=== PATIENT | female | born 1960 | race African-American/Black ===

== ENCOUNTER 2017-08-17 05:41 | Inpatient (IN) | payer OTHER ==
[2017-08-17] MEDS ORDERED: Vecuronium 10 MG VIAL ONE ×3 (06:01→13:49)
[2017-08-17] MEDS ORDERED: Fentanyl 250 MCG/5 ML VIAL ONE (06:01)
[2017-08-17] MEDS ORDERED: Midazolam HCl 5 mg/5 ml Vial ONE (06:01)
[2017-08-17] MEDS ORDERED: Sodium Chloride 0.9% 10 ML ONE ×2 (06:17→14:56)
[2017-08-17] MEDS ORDERED: Lidocaine 0.5%/Epinephrine 1:200,000 50 ml Vial ONE ×2 (06:17→19:15)
[2017-08-17] MEDS ORDERED: Bacitracin Zinc Ointment 30 gm TUBE ONE (06:17)
[2017-08-17] MEDS ORDERED: Thrombin 5000 UNITS/5 ML VIAL ONE ×2 (06:17→19:13)
[2017-08-17 06:27] LABS: Hemoglobin 15.6 g/dL (12.0-16.0); Mean Corpuscular HGB CONC 32.3 g/dL (32.0-36.0); Mean Corpuscular Hemoglobin 28.2 pg (27.0-31.0); Mean Corpuscular Volume 87.4 fl (81.0-99.0); Platelet Count 136 thou/uL (130-400); RBC Distribution Width 14.2 % (11.5-14.5); Red Blood Cell (RBC) Count 5.52 mill/uL (4.20-5.40); White Blood Cell (WBC) Count 5.3 thou/uL (4.8-10.8)
[2017-08-17 06:35] LABS: INR-International Normal Ratio 1.1; PTT 31.9 SEC (22.9-36.1); Prothrombin Time 14.1 SEC (12.0-14.7)
--- NOTE | 2017-08-17 06:37 | HP ---
REASON FOR ADMISSION: Here for brain tumor surgery. HISTORY OF PRESENT ILLNESS: Sherice Browning is a 57-year-old woman in our neurosurgery clinic refe rred for evaluation of a sellar and suprasellar mass. She underwent transsphenoidal resection of the inferior portion of the mass and it was found to be meningioma. It was tough and unsafe to remove i nferiorly. She is now back for a craniotomy for removal of the superior portion via intracranial jose kam. She has peripheral vision and blurry vision trouble and headache, but no other symptoms or c ranial neuropathies. PAST MEDICAL HISTORY: Coronary artery disease, hypertension, thyroid disease, and chronic back pain. PAST SURGICAL HISTORY: Transsphenoidal resection of a sellar and suprasellar lesion. HOSPITALIZATION: Hospitalization is for transsphenoidal resection of the tumor and for one episode o f alcohol withdrawal. MEDICATIONS: Hydralazine, levothyroxine, occasional Tylenol 3 and occasional tramadol. ALLERGIES: She has an allergy to NEXIUM. FAMILY HISTORY: No family history of a pituitary lesion or brain tumor. SOCIAL HISTORY: The patient has been a smoker of about a half pack to a pack per day for 15 years. She is not currently drinking alcohol or using drugs. She is . REVIEW OF SYSTEMS: Otherwise negative. PHYSICAL EXAMINATION: Ms. Browning is wide awake. She is conversant. Her receptive and expressive language function is normal. Her cognitive function is normal. Her visual snyder are contracted in the periphery. Her face is sensate and symmetric. Her hearing is normal to finger rub bilaterally. Her tongue protrudes midline. Shoulder shrugs and head turn are strong. The palate elevates in th e midline. There is no lateralizing motor or sensory deficit in the extremities. Alternating rapid motions are performed rapidly and smoothly. IMAGING FINDINGS: I reviewed a recent MRA of the brain performed at the [facility] shows the suprasellar portion of the lesion and evidence of prior surgery. This extends in the suprasellar sp karo under the optic chiasm between the carotid arteries and out of bed onto the plane and sphenoidale . ASSESSMENT: Sellar and suprasellar meningioma. PLAN: We will take Ms. Browning to the operating room for craniotomy and resection of her tumor thr ough an intracranial approach. Anticipate an ICU stay at least a day or two. I am optimistic for st jaqu[facility] recovery thereafter.
[2017-08-17] MEDS ORDERED: CEFAZOLIN/Water 2 GM/20 ML SYRINGE ONE (06:44)
[2017-08-17] MEDS ORDERED: Pantoprazole 40 MG VIAL ONE (07:56)
[2017-08-17] MEDS ORDERED: Dexamethasone 20 MG/5 ML VIAL ONE ×2 (07:56→13:46)
[2017-08-17] MEDS ORDERED: levETIRAcetam 1000 MG/100 ML PREMIX BAG ONE (07:56)
[2017-08-17] MEDS ORDERED: Fentanyl 100 MCG/2 ML VIAL ONE ×3 (08:36→16:44)
[2017-08-17] MEDS ORDERED: Metoprolol Tartrate 5 MG/5 ML VIAL ONE ×2 (08:37→13:46)
[2017-08-17] MEDS ORDERED: Papaverine 60 MG/2 ML VIAL ONE (12:50)
[2017-08-17] MEDS ORDERED: Mannitol 12.5 GM/50 ML ONE (13:46)
[2017-08-17] MEDS ORDERED: Sterile Water 10 ML VIAL ONE (13:46)
[2017-08-17] MEDS ORDERED: Lidocaine 2% PF 100 mg/5 ml Syringe ONE (13:46)
[2017-08-17] MEDS ORDERED: Lidocaine 1% PF 5 ML VIAL ONE (13:46)
[2017-08-17] MEDS ORDERED: Ondansetron HCl/PF 4 MG/2 ML Vial ONE (13:46)
[2017-08-17] MEDS ORDERED: CEFAZOLIN 1 GM VIAL ONE ×2 (13:46→15:49)
[2017-08-17] MEDS ORDERED: PROPOFOL 200 MG/20 ML VIAL ONE (13:49)
[2017-08-17] MEDS ORDERED: HYDROmorphone 0.5 MG/0.5 ML SYRINGE ONE ×5 (14:53→21:22)
[2017-08-17] MEDS ORDERED: Promethazine HCl 25 MG/ML VIAL SLOW IVP PRN (15:33)
[2017-08-17] MEDS ORDERED: Ondansetron HCl/PF 4 MG/2 ML Vial IVP PRN ×2 (15:33→16:13)
[2017-08-17] MEDS ORDERED: Promethazine HCl 25 MG/ML VIAL IM PRN ×2 (15:33→16:13)
[2017-08-17] MEDS ORDERED: Meperidine HCl/PF 25 MG/ML VIAL SLOW IVP PRN (15:33)
[2017-08-17] MEDS ORDERED: Labetalol HCl 100 MG/20 ML VIAL SLOW IVP PRN (16:13)
[2017-08-17] MEDS ORDERED: diphenhydrAMINE 50 MG CAP PO PRN (16:13)
[2017-08-17] MEDS ORDERED: Promethazine 25 MG TAB PO PRN (16:13)
[2017-08-17] MEDS ORDERED: Promethazine HCl 12.5 MG SUPP PR PRN (16:13)
[2017-08-17] MEDS ORDERED: Mag-Al 1200 mg/1200 mg/30 ML UDCUP PO PRN (16:13)
[2017-08-17] MEDS ORDERED: diphenhydrAMINE 50 MG/ML VIAL IVP PRN (16:13)
[2017-08-17] MEDS ORDERED: Morphine 4 MG/ML VIAL SLOW IVP PRN (16:30)
[2017-08-17] MEDS ORDERED: hydrALAZINE 20 MG/ML VIAL ONE (16:37)
[2017-08-17] MEDS ORDERED: niCARdipine HCl 25 MG in Sodium Chloride 0.9% 250 ML 240 ML IVPB SCH (16:45)
[2017-08-17 18:50] LABS: Actual Bicarbonate (HCO3a) 23.3 mEq/L (22-26); Base Excess (BEa) -2.3 mEq/L (0 (+/-) 2.5); CO2 Tension 42.9 mmHg (35.0-45.0); O2 Tension (PaO2) 119.1 mmHg (80.0-100.0); pH, Arterial 7.35 (7.35-7.45)
[2017-08-17 18:51] LABS: Calcium, Ionized 1.2 mmol/L (1.12-1.30); Hematocrit-ABG 44.3 % (36.0-47.0); Hemoglobin (Hb) 13.6 g/dL (12.0-16.0)
[2017-08-17 18:52] LABS: ALV-art Gradient 255.075 (0-20); Puncture Site ALINE
--- NOTE | 2017-08-17 19:14 | OP ---
DATE OF PROCEDURE: 08/17/2017 SURGEON: Dr. Jurado and Dr. Sevilla. ETL PROGRAMMER: Dr. Byrnes. PREOPERATIVE DIAGNOSES: Planum sphenoidale and suprasellar meningioma. POSTOPERATIVE DIAGNOSES: Planum sphenoidale and suprasellar meningioma. PREOPERATIVE MEDICATIONS: Ancef 2 grams IV, Keppra 1000 mg IV, Decadron 10 mg IV, Protonix 40 mg IV. DRAIN NUMBER: 0. DRAIN TYPE: None. OPERATIVE PROCEDURE: Left frontotemporal craniotomy for resection of planum sphenoidale and sellar a nd suprasellar meningioma. OPERATIVE PROCEDURE IN DETAIL: The patient was brought to the operating room. General endotracheal anesthesia was induced. The patient was positioned supine with the left shoulder bumped. The head w as immobilized in Sayre sherron headholder and turned slightly to the right and hair was removed fr om the left side of the scalp with electric clippers. We planned a curvilinear incision from the ashley t of zygoma curving posteriorly over the pinna and then anteriorly toward the midline. Under a plann ed incision, we infused local anesthetic. The scalp was sterilely prepped and draped. We opened wit h a 10-blade knife and controlled bleeding with bipolar and monopolar cautery. We dissected down to the periosteal layer and folded the scalp flap forward in 2 parts, first the scalp and then the tempo ralis muscle. We placed maya holes at the frontal keyhole the root of the zygoma, the posterior aspe ct of the superior temporal line and one in the frontal bone. We stripped the dura from the undersur face of the bone with a Dodge 3 dissector. We created a craniotomy flap with a side cutting bit a nd a foot plate. This frontotemporal flap was folded out of the field after we thinned the zygoma. With a high-speed drill and deena maya, we drilled the pterion flat. We then opened the dura in a curvilinear fashion centered at the pterion. The operating microscope was brought in the field. The Breather brain retractor system was attached to the Sayre sherron headholder. We carefully diss ected under the frontal lobe until we encountered tumor. Because the retractor necessary to visualiz e the tumor, we distressed the sylvian vessels. We opened the proximal portion of the sylvian fissur e widely. This relaxed the brain significantly, especially when we entered the sylvian cistern of hi s CSF contents and opened the arachnoid over the carotid and the optical carotid triangle. Tumor was visualized on the left side between the carotid and the optic nerve and above the optic nerve. We c arefully and meticulously dissected the anterior portion of the tumor off the planum sphenoidale. We arrived at the optic nerve on the contralateral side and carefully dissected off the optic nerve the re. Inferior to it, we found the carotid on the contralateral side and dissected tumor away from the carotid as well. The proximal dissection between carotid and optic nerve progressed very carefully and eventually we were deep to the tumor and could mobilize it medially under the optic nerve. In th is position, we coagulated the tumor capsule and fold the tumor in between the optic nerves on either side. We removed a large portion of tumor with this maneuver. We dissected carefully under the opt ic chiasm and removed tumor, we could visualize the pituitary stalk which was left intact. We could visualize the third nerve on the right (contralateral) side. In the inferior portion of the frontal lobes, tumor was removed in a piecemeal fashion as well. There was a small piece of tumor above the anterior cerebral that was intermittently associated with the anterior communicating complex and smal l perforators. We elected to leave some tumor on the ACOM complex rather than risk losing any small maintenance helper. Some tumor was left at the optic and carotid canals on the right side and the left side and a small shell of tumor left on the diaphragm sellae. We irrigated copiously with bacitracin irri gation. At the completion of our decompression, we could easily visualize the entire optic apparatus including both optic nerves and the chiasm. There is no longer compression there. The bulk of the tumor mass had been removed subfrontally as well with only a few tiny remnants left at the corners th at were too dangerous to remove. We irrigated copiously with bacitracin irrigation. We harvested a periosteal flap and used that to close the dura in a watertight fashion. We reapproximated the crani al flap with plates and screws. We closed the scalp in anatomic layers after reattaching the tempora lis muscle. A sterile dressing was applied. The patient was taken back out of [facility] cold header. Dr. Jurado and Dr. Sevilla performed equal portions of the procedure. The two surgeons were awa mayo given the length of the operation.
[2017-08-17] MEDS ORDERED: Sodium Chloride 0.9% 20 ML ONE ×3 (19:15→20:48)
--- NOTE | 2017-08-17 19:28 | PRG ---
DATE OF SERVICE: 08/17/2017 NEUROSURGERY PROGRESS NOTE SUBJECTIVE: I saw Ms. Browning in the recovery room over the past hour to hour and a half. Althoug h she made neurological improvement over that time and became more responsive to stimulus, moving the left side with purpose. The right side remained weak. There is almost no motion seen on the right and she is not responsive to voice. CT scan of the brain was performed and there is an extra-axial f luid collection most likely epidural hematoma over the dura that accumulated in the interim from surg [facility] until the scan. Reviewing records, the blood pressure was elevated at the end of the case and from the operating room to the recovery room including the first 30-45 minutes of recovery, this may be responsible. However, CT also demonstrates some areas of hypodensity that are concerning. I spoke with Ms. Browning's and reported the findings of the CT scan and they recommended op erative evacuation of the extra-axial hemorrhage to alleviate midline shift and remove that as a poss ibility for the neurological deficit. We will take her back to the operating room. INFORMED CONSENT: I discussed indications, risks, benefits, and alternatives to returning to the ope rating room. The risks discussed included, but were not limited to bleeding, infection, CSF leak, br ain damage, stroke, paralysis, dependence for care, cardiopulmonary complications of anesthesia and d eath. He understands the risks. All of this together, I think are less than the risk of not operati ng. Following surgery, we will likely leave the patient intubated overnight. We will get a CAT scan imme diately following surgery and a repeat in the morning.
--- NOTE | 2017-08-17 19:38 | CT ---
CT OF THE BRAIN WITHOUT CONTRAST 08/17/17 COMPARISON: None. HISTORY: Postoperative findings from craniotomy. TECHNIQUE: Multiple contiguous axial images were obtained in a CT of the brain without contrast. FINDINGS: The patient is status post left frontal craniotomy. There is a small amount of pneumocephalus. There is a subdural hematoma measuring 1.3 cm in width. There is also blood seen in the region of the pitui tary and hypothalamus. There is shift of the midline to the right of approximately 9 mm. No intervert ebral hemorrhage or hydrocephalus are seen. A small amount of blood is seen in the left frontal regio n which may not be extra-axial and could represent a small contusion in the frontal lobe. The paranasal sinuses are well aerated. Fluid is seen in the sphenoid sinuses. The mastoid air cells are well aerated. IMPRESSION: Postsurgical changes as above from recent craniotomy. There is a moderate amount of subdural hemorrha ge and blood in the region of the hypothalamus and pituitary. Midline shift without dominant herniati on is seen. POS: [facility]
--- NOTE | 2017-08-17 20:35 | CON ---
DATE OF CONSULTATION: 08/17/2017 REASON FOR CONSULTATION: Postop critical care management. HISTORY OF PRESENT ILLNESS: A 57-year-old female who underwent craniotomy with resection of sellar a nd suprasellar mass which is a meningioma. She was extubated in the recovery room. I was asked to s ee her because she has remained grossly hypertensive since surgery with systolic pressure about 200. PAST MEDICAL HISTORY: 1. Coronary artery disease. 2. Hypertension. 3. Hypothyroidism. 4. Chronic back pain. PAST SURGICAL HISTORY: She had a transsphenoidal resection of sellar and suprasellar lesion. She march s a scar in the left neck area - I am not sure if this is from carotid endarterectomy from previous t hyroid surgery. MEDICATIONS PRIOR TO ADMISSION: Hydralazine, levothyroxine, Tylenol #3, tramadol. ALLERGIES: NEXIUM. FAMILY MEDICAL HISTORY: Unremarkable. SOCIAL HISTORY: The patient has been half-pack per day smoker for 15 years, previously abused alcoho l, does not anymore. Does not consume illicit drugs. REVIEW OF SYSTEMS: Cannot be obtained as she is currently drowsy from anesthesia. PHYSICAL EXAMINATION: VITAL SIGNS: Heart rate 81, blood pressure 191/91, O2 sat in the upper 80s on nasal cannula. HEENT: She has a bandage around her head. Oropharynx has a bite block in place. NECK: She has a full thyroid extending up the right cervical area. She has a scar over the left mik e of her neck. LUNGS: Clear without wheezing or rhonchi. CARDIAC: S1, S2 regular, without murmur. ABDOMEN: Soft, nontender, nondistended. EXTREMITIES: No clubbing, cyanosis, or edema. LABORATORY DATA: White blood cell count 5.3, hematocrit 48.2, platelet count 136. INR 1.1, PTT 31.9 . ASSESSMENT: 1. Hypertension with elevated postop blood pressure. 2. Status post resection of sellar and suprasellar mass. RECOMMENDATIONS: 1. Cardene drip for blood pressure control. 2. Monitor electrolytes closely. 3. Monitor urine output closely as she is at risk for development of diabetes insipidus. 4. She is on empiric steroids, Dr. Jurado. 5. Need to restart her levothyroxine.
[2017-08-17] MEDS ORDERED: Propofol 500 MG/50 ML VIAL ONE (21:46)
--- NOTE | 2017-08-17 22:29 | CT ---
CT OF THE BRAIN WITHOUT CONTRAST 08/17/17 COMPARISON: 08/17/17 at 6:53 p.m. HISTORY: Evacuation of extra-axial hematoma in a postoperative patient. TECHNIQUE: Multiple contiguous axial images were obtained in a CT of the brain without contrast. FINDINGS: Postsurgical changes are again seen in the left frontal calvarium. The previously seen extra-axial fl uid collection has been predominantly evacuated. This is decreased in size and now measures approxima tely 6 mm in thickness. There is a stable amount of pneumocephalus. There is high density in the supr asellar region which likely is the operative bed. A small amount of high density is again seen in the frontal lobe measuring 9 mm in size which could represent a small contusion in the frontal lobe. Lef t midline shift is seen with approximately 7 mm of shift to the right. No downward herniation is seen . No hydrocephalus is seen. There is a trace of intraventricular hemorrhage on the posterior horn of the right lateral ventricle. IMPRESSION: 1. Evacuation of a large amount of the extra-axial hematoma along the left frontotemporal convex ity. 2. There are areas of hyperdensity in the brain which likely represents the patient's operative bed. 3. Small amount of intraventricular hemorrhage. POS: [facility]
[2017-08-17 23:13] LABS: Actual Bicarbonate (HCO3a) 20.8 mEq/L (22-26); CO2 Tension 35.2 mmHg (35.0-45.0); pH, Arterial 7.39 (7.35-7.45)
[2017-08-17 23:14] LABS: Base Excess (BEa) -3.5 mEq/L (0 (+/-) 2.5); Calcium, Ionized 1.2 mmol/L (1.12-1.30); Hematocrit-ABG 38.4 % (36.0-47.0); Puncture Site LINE
[2017-08-18 00:29] LABS: Troponin I Less than 0.010 ng/mL (< 0.028)
[2017-08-18 00:35] LABS: CKMB 17.4 ng/mL (0-6.6)
[2017-08-18] MEDS: Dexamethasone 4 mg/ml Vial SLOW IVP SCH ×6 (01:10→23:53)
[2017-08-18] MEDS: CEFAZOLIN/Water 2 GM/20 ML SYRINGE SLOW IVP SCH ×3 (01:10→16:20)
[2017-08-18] MEDS: Sodium Chloride 0.9% 1,000 ML IV SCH ×3 (01:11→20:17)
[2017-08-18] MEDS ORDERED: Propofol 1,000 MG/100 ML VIAL IV ONE (02:16)
[2017-08-18] MEDS ORDERED: Morphine 4 MG/ML VIAL SLOW IVP PRN (02:20)
[2017-08-18] MEDS ORDERED: Propofol BOLUS 1,000 MG/100 ML VIAL IV PRN (02:20)
[2017-08-18] MEDS ORDERED: Lorazepam 2 MG/ML VIAL SLOW IVP PRN (02:20)
[2017-08-18] MEDS ORDERED: fentaNYL Citrate/PF 2,000 MCG in Sodium Chloride 0.9% 60 ML IV SCH (02:20)
[2017-08-18] MEDS ORDERED: Fentanyl BOLUS 250 ML IVPB PRN (02:20)
[2017-08-18] MEDS ORDERED: DISCONTINUE PREVIOUS NARCOTIC PAIN MEDICATIONS AND BENZODIAZEPINES FS SCH (02:20)
--- NOTE | 2017-08-18 04:14 | OP ---
DATE OF PROCEDURE: 08/17/2017 SURGEON: Aisha Jurado MD RIGGING MAN: None. PREOPERATIVE INDICATION: Prevent neurological deterioration. PREOPERATIVE DIAGNOSES: Postoperative extraaxial hemorrhage with midline shift and mass effect. POSTOPERATIVE DIAGNOSIS: Postoperative extraaxial hemorrhage with midline shift and mass effect. OPERATIVE PROCEDURE: Re-opening of left frontotemporal craniotomy, evacuation of epidural and subdur al hematoma, repeat closure of frontotemporal craniotomy. PREOPERATIVE MEDICATION: Ancef 2 grams IV. DRAIN NUMBER: Zero. DRAIN TYPE: None. DESCRIPTION OF PROCEDURE: The patient was brought to the operating room. The patient was re-intubat ed and general anesthesia was induced. The head was attached to [place] sherron well head pumper. The le ft shoulder was bumped. The head was turned to the right and the head immobilized with [place] chad chment for the operating table. The scalp was sterilely prepped. We removed karel from the previo us craniotomy. We infused local anesthetic down each side of the incision and the scalp was prepped again. We draped in usual fashion. With scissors, we cut our previous sutures and opened our cranio soo flap. We lifted the temporalis muscle as a separate flap and we removed the screws holding the titanium plates in place. There was a large epidural hematoma with significant mass effect onto the dura and this was evacuated. There were small bleeders from the superficial surface of the dura, but no large significant bleeders. These were easily coagulated and there was no further bleeding. We gently opened a few of our dural sutures and found a small subdural clot, but enough that required ev acuation. We opened the dura further and evacuated all of her subdural hematoma. We irrigated it co piously with bacitracin irrigation. All the irrigant ran clear after evacuation of her hematoma. Th e brain floated up nicely and we re-closed the dura in an interrupted fashion with our pericranium an d dura connected. We filled the dura with irrigant before the last sutures were thrown. We reapprox imated the skull flap at this time with 4 sleeper stitches instead of 1 and tightened down our screws into the previous holes that we had made. We irrigated once again with bacitracin irrigation. We t urned the entire table until top of the incision was the highest point and through the maya holes we filled the craniotomy defect with irrigant until all bubbles were finished. We then reapproximated t he temporalis muscle. We filled the incision once again with irrigation and we closed the craniotomy incision from both sides towards the middle filling with irrigant as we went and then we finally jurgen sed the skin with karel. We applied a sterile dressing. We removed the Brito sherron head holde r and we transferred the patient to the transport cart and took her to the CT scan. This was a clean case and no contamination.
[2017-08-18 04:23] LABS: #Lymphocytes 1.1 thou/uL (1.20-3.40); #Monocytes 0.6 thou/uL (0.11-0.59); #Neutrophils 8.9 thou/uL (1.40-6.50); %Basophils 0.2 % (0.0-1.0); %Eosinophils 0.1 % (0.0-10.0); %Lymphocytes 9.9 % (21.0-51.0); %Monocytes 5.6 % (0.0-10.0); %Neutrophils 84.2 % (42.0-75.0); Hemoglobin 12.4 g/dL (12.0-16.0); Mean Corpuscular HGB CONC 32.6 g/dL (32.0-36.0); Mean Corpuscular Hemoglobin 28.6 pg (27.0-31.0); Mean Corpuscular Volume 87.7 fl (81.0-99.0); Mean Platelet Volume 9.3 fL (7.4-10.4); Platelet Count 124 thou/uL (130-400); Red Blood Cell (RBC) Count 4.32 mill/uL (4.20-5.40); White Blood Cell (WBC) Count 10.5 thou/uL (4.8-10.8)
[2017-08-18 04:30] LABS: Anion Gap 10 mmol/L (10-20); BUN (Urea Nitrogen) 7 mg/dL (9.8-20.1); Calc. Creatinine Clearance 93 mL/min (70-130); Calcium 8.5 mg/dL (7.8-10.44); Carbon Dioxide 22 mmol/L (22-29); Chloride 116 mmol/L (98-107); Estimated GFR-MDRD Greater than 90; Glucose 205 mg/dL (70-105); Potassium 3.3 mmol/L (3.5-5.1); Sodium 145 mmol/L (136-145)
[2017-08-18 04:38] LABS: Troponin I Less than 0.010 ng/mL (< 0.028)
[2017-08-18 04:42] LABS: CKMB 15.8 ng/mL (0-6.6); Critical Call CKMBM RESULT DECREASING
[2017-08-18] MEDS: Levothyroxine 100 MCG SDV IVP SCH (06:51)
--- NOTE | 2017-08-18 07:16 | PRG ---
DATE OF SERVICE: 08/18/2017 Ms. Browning is postop day #1 from microsurgical resection of a skull base meningioma in the suprase llar space. She was slow to wake from that first surgery and had a combination of epidural subdural hematoma at the operative site which needed a repeat evacuation. Overnight, she has been in ICU on p ropofol drip. When the propofol is turned off, she is purposeful. She is moving her left side faste r than the right, but both sides are moving this morning, which is an improvement. Her vitals have b een stable, but she is on a Cardene drip to control her blood pressure. I am examining her after the propofol has just been stopped. There is some disconjugate gaze and sluggish pupils and sluggish to nonreactive pupils. The pupils are small, however. I do see very brisk motion on the left side of the body. She uses her right elbow to try to push her self to sit up, she moves the right leg, and moves a bit slower than the left, but they are moving. CT imaging of the brain shows evacuation of the subdural hematoma. There is some anterior pneumoceph alus, there is a small clot in the area of the tumor resection, not causing much in the way of mass e ffect. There is hypodensity in the left thalamus and near the chin near the internal capsule. There is hypodensity in the left anterior thalamus. There are some hypodensities in MCA distributions isael aterally, but it is hard to know what to make of these. Sodium was 145 this morning. CK-MB was elevated, but troponins were negative. My plan today is to h ave Ms. Browning have an MRI scan. This will better delineate hypodensities within the brain. I do not plan on using contrast for this scan. The follow up imaging directed toward the tumor itself i n 3 months will be done with contrast. As she wakes will better us to be able to assess her second a nd third cranial nerves bilaterally. If after the MRI scan she is awake enough, she could possibly b e extubated. We have kept the family informed both overnight and this morning as to her progress and her imaging f mary jane.
[2017-08-18] MEDS ORDERED: Dextrose 50% Abboject 50 ML SYRINGE SLOW IVP PRN (07:39)
[2017-08-18] MEDS ORDERED: CCU Electrolyte Replacement 1 EACH FS ONE (07:39)
[2017-08-18] MEDS ORDERED: Dextrose 5% in Water 1,000 ML IV PRN (07:39)
--- NOTE | 2017-08-18 07:59 | PRG ---
DATE OF SERVICE: 08/18/2017 Thirty-five minutes critical care time. SUBJECTIVE: The patient had to be taken back to surgery last night. She was left intubated afterwar d. She had developed some type of a hematoma, which was causing a midline shift. Neurologically, kellen adams is experiencing right-sided weakness compared to the left. She is scheduled for an MRI later this morning. PHYSICAL EXAMINATION: VITAL SIGNS: Right now, her blood pressure is 130/60, pulse 65, O2 sat 100%, respiratory rate 18, te mperature 98.4. HEENT: Her left pupil is 3 mm, right pupil is 1 mm. Sclerae anicteric. Oropharynx clear. NECK: No JVD. LUNGS: Coarse breath sounds. CARDIAC: S1 and S2 regular. ABDOMEN: Soft. EXTREMITIES: No edema. LABORATORY DATA: Sodium 145, potassium 3.3, chloride 116, CO2 22, BUN 7, creatinine 0.6, glucose 205 . ABG from last night, pH 7.39, pCO2 35, pO2 118 on SIMV rate 14, tidal volume 400, PEEP 5, pressure support 10, FiO2 50%. White blood cell count 10.5, hematocrit 37.9, platelet count 124. ASSESSMENT: 1. Status post suprasellar mass removal subsequent postop fluid collection, midline shift. 2. Right-sided hemiparesis. 3. Acute respiratory failure requiring mechanical ventilation. 4. Hyperglycemia secondary to exogenous Decadron. 5. Expected postop respiratory failure, not related to surgery. PLAN: 1. Leave the patient intubated until neurologic status is improved. 2. Replace potassium. 3. Continue IV Synthroid. 4. Add sliding scale insulin. 5. Continue IV steroids. We will follow.
--- NOTE | 2017-08-18 08:25 | CT ---
PRELIMINARY REPORT/[facility]/EMERGENCY AFTER HOURS PROCEDURE: EXAM: CT Head Without Intravenous Contrast CLINICAL HISTORY: 57 years old, female; cerebral aneurysm: F/u S/P craniotomy TECHNIQUE: Axial computed tomography images of the head/brain without intravenous contrast. COMPARISON: CT Brain WO Con 2017-08-17 22:16 FINDINGS: Brain: No change in focal area of low density / ischemia within the anterior left thalamus and inferi or left frontal lobe. Periventricular white matter areas of decreased density which are likely second steve to chronic ischemia from microvascular change. No hemorrhage. Midline shift: No interval change in approximate 5-6 mm mxir-rj-zcuyt midline shift. Ventricles: Unremarkable. No ventriculomegaly. Bones/joints: Prior left mosprld-ljpvjznd-bdbpkwdt craniotomy with persistent acute-on chronic left f vyhdjv-pasuwpwk-chryxldh subdural collection and collections of postsurgical air within the right fro ntal and left vlrcwjb-rapsceox-xhtxbnxm extra-axial space. Soft tissues: Unremarkable. Sinuses: Opacified sphenoid sinus. Mastoid air cells: Unremarkable as visualized. No mastoid effusion. Sella: No interval change in lobulated focal area of hemorrhage within the suprasellar region, small focal area of hemorrhage within the inferior left frontal lobe, or area of hemorrhage high within the anterior left cerebral hemisphere. Other findings: Persistent trace amount of acute hemorrhage in the right occipital horn. IMPRESSION: 1. No acute intracranial findings compared to 08/17/2017. 2. Prior left opothcg-tjdxnvtu-ldvtpuhb craniotomy with persistent acute-on chronic left frontal-britni etaltemporal subdural collection and collections of postsurgical air within the right frontal and lef t frontalparietal- temporal extra-axial space. 3. No interval change in lobulated focal area of hemorrhage within the suprasellar region, small foca l area of hemorrhage within the inferior left frontal lobe, or area of hemorrhage high within the ant erior left cerebral hemisphere. 4. No interval change in approximate 5-6 mm [id number]-px-[id number] midline shift. 5. Persistent trace amount of acute hemorrhage in the right occipital horn. 6. No change in focal area of low density / ischemia within the anterior left thalamus and inferior l eft frontal lobe. Thank you for allowing us to participate in the care of your patient. Dictated and Authenticated by: Urban Valles MD 08/18/2017 5:22 AM Central Time ([place] & [place]) FINAL REPORT CT HEAD: Date: 08/18/17 Time: 0416 hours FINDINGS/IMPRESSION: No acute interval change from exam of 08/17/17 at 2217 hours. Multiple intracranial findings, includi ng left subdural hematoma, are described on the preliminary report by [facility]. I am in agreement with farrukh adams preliminary report. POS: [facility]
[2017-08-18] MEDS ORDERED: Potassium Chloride 40 MEQ in Premix Bag 1 BAG IVPB PRN (08:32)
[2017-08-18] MEDS ORDERED: Potassium Phosphate 12 MMOL in Sodium Chloride 0.9% 250 ML 250 ML IV PRN (08:32)
[2017-08-18] MEDS ORDERED: Magnesium Oxide 400 MG TAB PO PRN ×2 (08:32)
[2017-08-18] MEDS ORDERED: Potassium Phosphate 9 MMOL in Sodium Chloride 0.9% 100 ML IVPB PRN (08:32)
[2017-08-18] MEDS ORDERED: Magnesium 2 GM/NS 0.9% 100 ML 2 GM in Premix Bag 1 BAG IVPB PRN (08:32)
[2017-08-18] MEDS ORDERED: CCU ELECTROLYTE REPLACEMENT PROTOCOL FS PRN (08:32)
[2017-08-18] MEDS ORDERED: Potassium Phosphate 15 MMOL in Sodium Chloride 0.9% 250 ML 250 ML IV PRN (08:32)
[2017-08-18] MEDS ORDERED: Potassium Chloride 20 MEQ TAB PO PRN (08:32)
[2017-08-18] MEDS: Insulin Regular 300 UNITS/3 ML VIAL SC PRN ×2 (08:58→23:46)
[2017-08-18] MEDS: Potassium Chloride 40 MEQ in Sodium Chloride 0.9% 250 ML 250 ML IVPB PRN (09:31)
[2017-08-18] MEDS: niCARdipine HCl 50 MG in Sodium Chloride 0.9% 250 ML 230 ML IVPB SCH ×4 (11:59→23:53)
[2017-08-18] MEDS ORDERED: Vecuronium 10 MG VIAL IVP PRN (12:04)
[2017-08-18] MEDS ORDERED: Vecuronium 10 MG VIAL IV PRN (12:21)
--- NOTE | 2017-08-18 15:47 | MRI ---
BRAIN MRI WITHOUT CONTRAST: DATE: 08/18/17. COMPARISON: None. HISTORY: Postoperative patient status post craniotomy. TECHNIQUE: Multiplanar, multisequence MR imaging of the brain is obtained without contrast. FINDINGS: There is evidence of left frontal craniotomy with overlying cutaneous karel present. Bilateral anterior subdural pneumocephalus noted. Bilateral hemispheric subdural hematomas are prese nt, left greater than right, measuring up to 4 mm in transverse dimension in left temporal region, 3 mm in transverse dimension right temporal region, 1 cm transverse dimension in left frontal region, a nd 6 mm transverse dimension right frontal region. Small volume intraventricular hemorrhage is noted in the region of the bilateral lateral ventricles within the posterior horns. There is midline shif t from left to right measuring approximately 7-8 mm, as seen on the CT examination performed earlier on 08/18/17. Regional bone marrow signal intensity appears grossly unremarkable. There is fluid layering posterio rly within the nasopharynx. There is polypoid mucosal thickening within the sphenoid sinus on the le ft. Arterial flow voids at axial level of the skull base appear grossly unremarkable on the T2 weighted i maging. There is a focal area of signal abnormality just inferior to the expected location of the anterior co mmunicating artery which measures 8-9 mm in AP dimension. There is blooming artifact in this region as well as decreased T2 and FLAIR signal intensity. This could be related to a focus of intracranial hemorrhage and/or aneurysm. There are areas of increased T2 and FLAIR signal within the cortex and subcortical white matter along the inferior margin of the anterior cranial fossa on the left involvin g the left frontal lobe, evidence of left frontal lobe edema. There is a round area of restricted di ffusion within the anteromedial aspect of the left thalamus measuring 1.5 cm, evidence of an acute le ft thalamic infarction. There is also restricted diffusion along the inferior margin of the left fro ntal lobe measuring up to 1.6 cm, suggesting an additional area of acute infarction. A focus of prob able intraaxial hemorrhage is noted in the superior anterior left frontal lobe near the vertex, best seen on axial T2 image 20 measuring 1.6 cm AP dimension. The brainstem and posterior fossa demonstrate no evidence for acute infarction. No acute infarction is seen involving the right cerebrum. IMPRESSION: Bilateral subdural hematomas, left greater than right, most prominent in the left frontal region, wit h [id number] midline shift, as seen on recent CT. There are foci of acute infarction along the in ferior aspect of the left frontal lobe as well as within the left thalamus. Intraventricular hemorrh age noted within bilateral lateral ventricles, stable. Continued followup advised. A focus of signa l alteration in the expected region of the anterior communicating artery which could reflect aneurysm or hemorrhage in this region. This could be better assessed via a followup CT angiogram. POS: [facility]
[2017-08-18] MEDS: Propofol 1,000 MG/100 ML VIAL IV PRN ×2 (16:21→23:53)
[2017-08-18 17:24] LABS: Sodium 154 mmol/L (136-145)
[2017-08-18] MEDS: Pantoprazole 40 MG VIAL IVP SCH ×2 (21:17)
[2017-08-18] MEDS: hydrALAZINE 20 MG/ML VIAL SLOW IVP PRN (21:18)
[2017-08-19 00:08] LABS: Sodium 156 mmol/L (136-145)
[2017-08-19] MEDS: niCARdipine HCl 50 MG in Sodium Chloride 0.9% 250 ML 230 ML IVPB SCH ×3 (03:50→20:16)
[2017-08-19] MEDS: Insulin Regular 300 UNITS/3 ML VIAL SC PRN ×2 (04:54→18:33)
[2017-08-19 05:09] LABS: #Monocytes 0.7 thou/uL (0.11-0.59); #Neutrophils 14.9 thou/uL (1.40-6.50); %Basophils 0.1 % (0.0-1.0); %Eosinophils 0.1 % (0.0-10.0); %Lymphocytes 6.2 % (21.0-51.0); %Monocytes 4.2 % (0.0-10.0); %Neutrophils 89.3 % (42.0-75.0); Hemoglobin 11.1 g/dL (12.0-16.0); Mean Corpuscular HGB CONC 32.1 g/dL (32.0-36.0); Mean Corpuscular Hemoglobin 28.5 pg (27.0-31.0); Mean Corpuscular Volume 88.7 fl (81.0-99.0); Mean Platelet Volume 9.2 fL (7.4-10.4); Platelet Count 120 thou/uL (130-400); White Blood Cell (WBC) Count 16.7 thou/uL (4.8-10.8)
[2017-08-19] MEDS: Levothyroxine 100 MCG SDV IVP SCH (05:09)
[2017-08-19] MEDS: Dexamethasone 4 mg/ml Vial SLOW IVP SCH ×3 (05:09→17:23)
[2017-08-19 05:28] LABS: Anion Gap 10 mmol/L (10-20); BUN (Urea Nitrogen) 6 mg/dL (9.8-20.1); Calc. Creatinine Clearance 116 mL/min (70-130); Calcium 8.8 mg/dL (7.8-10.44); Carbon Dioxide 22 mmol/L (22-29); Chloride 125 mmol/L (98-107); Estimated GFR-MDRD Greater than 90; Glucose 160 mg/dL (70-105); Potassium 3.1 mmol/L (3.5-5.1); Sodium 154 mmol/L (136-145)
[2017-08-19 05:51] LABS: Sodium 156 mmol/L (136-145)
[2017-08-19] MEDS: Potassium Chloride 40 MEQ in Sodium Chloride 0.9% 250 ML 250 ML IVPB PRN (07:02)
[2017-08-19 07:09] LABS: Actual Bicarbonate (HCO3a) 21.5 mEq/L (22-26); CO2 Tension 35.8 mmHg (35.0-45.0); O2 Tension (PaO2) 146.1 mmHg (80.0-100.0)
[2017-08-19 07:10] LABS: Base Excess (BEa) -2.9 mEq/L (0 (+/-) 2.5); Calcium, Ionized 1.3 mmol/L (1.12-1.30); Hematocrit-ABG 28.9 % (36.0-47.0); Hemoglobin (Hb) 10.9 g/dL (12.0-16.0); Puncture Site ALINE
--- NOTE | 2017-08-19 07:10 | PRG ---
DATE OF SERVICE: 08/19/2017 I saw Ms. Browning in the ICU this morning. I reviewed MR findings with the family yesterday. I sp sydnee to them both in the morning and the evening. Family member is in the room with her this morning and we went over her care. Ms. Browning had some high urine output yesterday for which we started to check q.6 hours sodiums an d urine specific gravity if it was over 350 mL of urine out in an hour or 600 in 2 hours. Overnight, she seems to be concentrating her urine again with lower urine output and a yellow hue to the urine. Her vital signs this morning are stable. Her blood pressure is down to 118. Even within a minute of turning the propofol off she starts to respond to stimulus. She moves 4 extremities purposefully, but the right side is slower than the left. When I open her eyes manually there seems to be some le ft third nerve palsy with outward deviation of the left eye, but the pupil is small and could be pupi l sparing or in the motor nucleus of the third nerve at the tip of the brainstem. Sodium this morning is 156. White blood cell count was 16.7. MR imaging yesterday showed decreased diffusion in the thalamus and the anterior portion of the mid brain on the left side. The hypodensit ies on CT imaging from prior days did not have an MR correlate and are not reflective of embolization . Area of restricted diffusion of the base of the frontal lobe is in our surgical corridor. I feel Ms. Browning's family are optimistic for continued improvement in function on the right side. I am concerned about a third nerve paresis, about third nerve weakness and she will need to be more awake before we can test her vision. Then [facility] will [facility] some [facility] The first step in towards that goal is to attempt to extubate at some point either t johana or over the weekend.
--- NOTE | 2017-08-19 07:56 | PRG ---
DATE OF SERVICE: 08/19/2017 Thirty-five minutes critical care time. SUBJECTIVE: The patient remains intubated on mechanical ventilation. At the time of my exam, she wa s on propofol and that is being held, so that we can further assess. Last night, she had difficulty with high urine output and increased sodium. Her urine output has since fallen. OBJECTIVE: VITAL SIGNS: On exam, her temperature is 97.5, pulse 72, blood pressure 122/50. She is currently on propofol and nicardipine. She has arterial line in place. HEENT: She has a large bandage around her head. Her pupils are 2 mm and I can get either to react t o light. Sclerae anicteric. Oropharynx is clear. NECK: No JVD. LUNGS: Clear to auscultation without wheezing. CARDIAC: S1, S2 regular, without murmur, rub or gallop. ABDOMEN: Soft, nontender, nondistended. EXTREMITIES: No clubbing, cyanosis, or edema. LABORATORY DATA AND X-RAY FINDINGS: pH 7.40, pCO2 of 35, pO2 of 146 on SIMV rate 14, tidal volume 40 0, PEEP 5, pressure support 10, FiO2 40%. White blood cell count 16.7, hematocrit 34.6, platelet cou nt 120. Sodium 154, potassium 3.1, chloride 125, CO2 22, BUN 6, creatinine 0.5, glucose 160. Chest x-ray shows no mass, effusion or infiltrate. The brain MRI yesterday demonstrated bilateral subdural hematomas, left greater than right. There was a foci of acute infarction in the inferior aspect of the left frontal lobe as well as in the left thalamus. There was intraventricular hemorrhage noted. ASSESSMENT: 1. Status post craniotomy for resection of a suprasellar mass. 2. Intraoperative or postoperative cerebrovascular accident. 3. 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 4. Right-sided hemiparesis. 5. Acute respiratory failure requiring mechanical ventilation. 6. Hyperglycemia secondary to Decadron. PLAN: 1. We will try her off sedation for a few minutes to see what her mental status looks like. I am no t optimistic that she can be extubated. 2. Change IV fluids to D5W and plan on trying to correct the sodium down to about 146 today. 3. Continue IV Synthroid. 4. Continue sliding scale insulin. 5. Continue the Decadron. 6. Initiate enteral tube feeds. 7. If the patient's mental status does not look favorable for extubation, then she will be kept on m echanical ventilation until the point to where the mental status does improve. She may be looking at tracheostomy.
--- NOTE | 2017-08-19 08:11 | RAD ---
PORTABLE CHEST: HISTORY: Respiratory distress. FINDINGS: Endotracheal and NG tubes are in satisfactory position. Heart size is within normal limits. There a re atherosclerotic changes of the aorta. The lungs are clear of infiltrates. IMPRESSION: Endotracheal and nasogastric tubes in satisfactory position. No active intrathoracic disease. POS: [facility]
[2017-08-19] MEDS: Amlodipine 10 MG TAB PER TUBE SCH (08:12)
[2017-08-19] MEDS: Dextrose 5% in Water 1,000 ML IV SCH ×2 (08:13→17:36)
[2017-08-19] MEDS: Propofol 1,000 MG/100 ML VIAL IV PRN ×2 (11:14→18:03)
[2017-08-19 12:39] LABS: Sodium 156 mmol/L (136-145)
[2017-08-19] MEDS: hydrALAZINE 20 MG/ML VIAL SLOW IVP PRN (17:23)
[2017-08-19 18:56] LABS: Sodium 154 mmol/L (136-145)
[2017-08-19] MEDS: Sodium Chloride 0.9% 1,000 ML IV SCH (19:34)
[2017-08-19] MEDS: Pantoprazole 40 MG VIAL IVP SCH (20:00)
[2017-08-20 00:17] LABS: Sodium 155 mmol/L (136-145)
[2017-08-20] MEDS: Insulin Regular 300 UNITS/3 ML VIAL SC PRN ×4 (00:25→22:41)
[2017-08-20] MEDS: Propofol 1,000 MG/100 ML VIAL IV PRN ×3 (00:26→23:35)
[2017-08-20] MEDS: Dexamethasone 4 mg/ml Vial SLOW IVP SCH ×5 (00:26→23:29)
[2017-08-20] MEDS: niCARdipine HCl 50 MG in Sodium Chloride 0.9% 250 ML 230 ML IVPB SCH ×5 (00:26→23:30)
[2017-08-20] MEDS: hydrALAZINE 20 MG/ML VIAL SLOW IVP PRN ×2 (01:38→17:11)
[2017-08-20 05:42] LABS: Anion Gap 10 mmol/L (10-20); BUN (Urea Nitrogen) 8 mg/dL (9.8-20.1); Calc. Creatinine Clearance 101 mL/min (70-130); Calcium 8.7 mg/dL (7.8-10.44); Carbon Dioxide 23 mmol/L (22-29); Estimated GFR-MDRD Greater than 90; Glucose 143 mg/dL (70-105); Potassium 3.1 mmol/L (3.5-5.1); Sodium 157 mmol/L (136-145)
[2017-08-20 05:48] LABS: Chloride 127 mmol/L (98-107)
[2017-08-20] MEDS: Levothyroxine 100 MCG SDV IVP SCH (05:54)
[2017-08-20 06:58] LABS: Band 5 % (5-11); Eosinophils 1 % (0-10); Hemoglobin 10.4 g/dL (12.0-16.0); Lymphocytes 9 % (21-51); MDiff Complete? YES; Mean Corpuscular Hemoglobin 28.6 pg (27.0-31.0); Mean Corpuscular Volume 89.3 fl (81.0-99.0); Mean Platelet Volume 9.2 fL (7.4-10.4); Monocytes 1 % (0-10); Neutrophil 84 % (42-75); PLT Morphology Comment Appears Adequate; Platelet Count 131 thou/uL (130-400); RBC Distribution Width 14.2 % (11.5-14.5); Red Blood Cell (RBC) Count 3.64 mill/uL (4.20-5.40); White Blood Cell (WBC) Count 15.9 thou/uL (4.8-10.8)
[2017-08-20 07:10] LABS: CO2 Tension 31.7 mmHg (35.0-45.0); pH, Arterial 7.45 (7.35-7.45)
[2017-08-20 07:11] LABS: ALV-art Gradient 35.425 (0-20); Actual Bicarbonate (HCO3a) 21.6 mEq/L (22-26); Base Excess (BEa) -1.7 mEq/L (0 (+/-) 2.5); Calcium, Ionized 1.3 mmol/L (1.12-1.30); Hematocrit-ABG 26.4 % (36.0-47.0); Hemoglobin (Hb) 10.2 g/dL (12.0-16.0); O2 Tension (PaO2) 103.2 mmHg (80.0-100.0); Puncture Site ALINE
--- NOTE | 2017-08-20 08:16 | RAD ---
SEMIUPRIGHT PORTABLE CHEST 1 VIEW: Date: 08/20/17 HISTORY: 57-year-old female with history of respiratory insufficiency follow-up. COMPARISON: 08/19/17. FINDINGS: NG tube and endotracheal tubes remain in place. Stable increased markings bilaterally with less inspi ration than on the prior study. IMPRESSION: Some increased bronchovascular markings, particularly in the perihilar and infrahilar regions, more p rominent than on the prior study, and part related to less inspiration. This may well represent some degree of subsegmental atelectasis or possibly developing pneumonitis. Continue short-term follow-up. POS: [facility]
[2017-08-20] MEDS: Amlodipine 10 MG TAB PER TUBE SCH (09:15)
[2017-08-20] MEDS: Sodium Chloride 0.9% 1,000 ML IV SCH ×2 (09:16→22:33)
--- NOTE | 2017-08-20 12:14 | PRG ---
DATE OF SERVICE: 08/20/2017 SUBJECTIVE: Ms. Browning is hemodynamically stable. OBJECTIVE: VITAL SIGNS: Heart rate is 86, she is in sinus rhythm, blood pressure 148/56, respiratory rates in t he teens to low 20s. Intake and output is positive 2096 mL. LUNGS: Clear. CARDIOVASCULAR: Regular rhythm. S1 and S2 are normal. ABDOMEN: Soft and nontender. EXTREMITIES: Without asymmetry. IMAGING: Chest radiograph is suggestive of mild increase in interstitial markings. She is toleratin g her nutrition. LABORATORY DATA: White count 15.9, hemoglobin 10.4, platelets 131. Sodium 157, yesterday was 155; p otassium 3.1; chloride 127; bicarbonate 23; BUN 8; creatinine 0.59. IMPRESSION: 1. Status post craniotomy. 2. Cerebrovascular accident (thrombotic). 3. Respiratory failure, currently not weanable. She does follow commands and hemiplegic. She has a sedation holiday. 4. Mild interstitial edema. 5. Mild hyperosmolar state. PLAN: Continue supportive care. There is any clinically appear to have diabetes insipidus at this t matty, we will continue to watch her. Critical care time was 30 minutes.
[2017-08-20 12:34] LABS: Sodium 157 mmol/L (136-145)
--- NOTE | 2017-08-20 14:39 | ULT ---
BILATERAL LOWER EXTREMITY VENOUS DUPLEX ULTRASOUND INCLUDING COLOR AND SPECTRAL DOPPLER IMAGING: Date: 08/20/17 HISTORY: 57-year-old female with history of immobility postoperative. Mild edema. TECHNIQUE: Exam performed from groin to ankle including visualized greater saphenous, common femoral, superficia l femoral, profunda femoral, popliteal, trifurcation, and posterior tibial vein regions. FINDINGS: Phasic flow noted at all levels with normal compressibility and normal augmentation. No intraluminal thrombus. IMPRESSION: No evidence for deep venous thrombosis. Mild subcutaneous swelling and edema. POS: [facility]
--- NOTE | 2017-08-20 15:07 | PRG ---
DATE OF SERVICE: 08/20/2017 I visited with Mrs. Browning as well as her family. She is currently on propofol. On propofol, she was moving spontaneously and much more aggressively to stimulus. She is quite purposeful on the lef t and weak, but moving on the right. Per report today when sedation was lightened up, there was some intermittent following of commands and some sluggish right eye opening. Currently on sedation. The re is no eye opening. Her left eye has a lateral gait deviation. The right eye does not appear to t rack the examiner at this time definitively. Her pupils are 3 mm and I am not convinced that there is definitive pupillary reaction. She is overb reathing the ventilator. The patient's sodium is 157 and her urine output recently normal. 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 Postoperative course has been complicated by a left thalamic and anterior capsule infarct. T he infarct is small and is causing her to have a right hemiparesis with high potential for recovery. The patient is also having at least a left third nerve palsy and potentially some other issues with e xtraocular movements and/or vision. This is related to direct tumor involvement and distortion of th e third nerve and optic nerves. I am also optimistic with regard to long-term recovery in this regar d. The patient did have transient DI which seems to have resolved. We are running her on the dry side a nd this seems to be relatively stable and satisfactory. We will continue with supportive care and gradually wean from the ventilator. She will require exten sive ongoing rehabilitation, but her long-term prognosis for neurologic recovery remains favorable. I had a lengthy discussion with the patient's family members to update them as her progress. All que stions were answered.
[2017-08-20 18:30] LABS: Sodium 158 mmol/L (136-145)
[2017-08-20] MEDS: Pantoprazole 40 MG VIAL IVP SCH (22:33)
[2017-08-21 00:15] LABS: Sodium 157 mmol/L (136-145)
[2017-08-21] MEDS: Insulin Regular 300 UNITS/3 ML VIAL SC PRN ×4 (04:00→21:09)
[2017-08-21 04:23] LABS: Anion Gap 10 mmol/L (10-20); BUN (Urea Nitrogen) 13 mg/dL (9.8-20.1); Calc. Creatinine Clearance 93 mL/min (70-130); Calcium 8.6 mg/dL (7.8-10.44); Carbon Dioxide 21 mmol/L (22-29); Estimated GFR-MDRD Greater than 90; Glucose 167 mg/dL (70-105); Potassium 3.1 mmol/L (3.5-5.1); Sodium 159 mmol/L (136-145)
[2017-08-21 04:28] LABS: Chloride 131 mmol/L (98-107)
[2017-08-21 04:58] LABS: Band 3 % (5-11); Hemoglobin 10.3 g/dL (12.0-16.0); Lymphocytes 11 % (21-51); MDiff Complete? YES; Mean Corpuscular Hemoglobin 29.9 pg (27.0-31.0); Mean Corpuscular Volume 90.4 fl (81.0-99.0); Mean Platelet Volume 9.1 fL (7.4-10.4); Monocytes 2 % (0-10); Neutrophil 84 % (42-75); PLT Morphology Comment Appears Adequate; Platelet Count 146 thou/uL (130-400); RBC Distribution Width 14.2 % (11.5-14.5); Red Blood Cell (RBC) Count 3.46 mill/uL (4.20-5.40); White Blood Cell (WBC) Count 11.4 thou/uL (4.8-10.8)
[2017-08-21 05:54] LABS: Sodium 159 mmol/L (136-145)
[2017-08-21] MEDS: Dexamethasone 4 mg/ml Vial SLOW IVP SCH ×3 (06:35→17:36)
[2017-08-21] MEDS: Levothyroxine 100 MCG SDV IVP SCH (06:36)
[2017-08-21 07:20] LABS: CO2 Tension 30.9 mmHg (35.0-45.0); pH, Arterial 7.45 (7.35-7.45)
[2017-08-21 07:21] LABS: Actual Bicarbonate (HCO3a) 21.1 mEq/L (22-26); Base Excess (BEa) 1.8 mEq/L (0 (+/-) 2.5); Hematocrit-ABG 35.9 % (36.0-47.0); Hemoglobin (Hb) 4.7 g/dL (12.0-16.0); O2 Tension (PaO2) 69.4 mmHg (80.0-100.0)
[2017-08-21 07:22] LABS: Calcium, Ionized 1.3 mmol/L (1.12-1.30)
[2017-08-21 07:23] LABS: Puncture Site AL
[2017-08-21 07:24] LABS: ALV-art Gradient 41.705 (0-20)
[2017-08-21] MEDS: Propofol 1,000 MG/100 ML VIAL IV PRN ×3 (07:27→21:02)
[2017-08-21] MEDS: Amlodipine 10 MG TAB PER TUBE SCH (09:15)
--- NOTE | 2017-08-21 09:50 | RAD ---
SEMIUPRIGHT PORTABLE CHEST 1 VIEW: Date: 09/05/17 HISTORY: 57-year-old female with history of respiratory insufficiency. COMPARISON: 08/20/17. FINDINGS: Life support tubes remain in place. Mild increased markings in the lower lung zones, but stable. IMPRESSION: Stable increased markings in the bases. No new process. POS: [facility]
[2017-08-21] MEDS: niCARdipine HCl 50 MG in Sodium Chloride 0.9% 250 ML 230 ML IVPB SCH ×4 (09:53→19:14)
[2017-08-21] MEDS: Morphine 4 MG/ML VIAL SLOW IVP PRN ×2 (10:20→21:46)
[2017-08-21] MEDS: Sodium Chloride 0.9% 1,000 ML IV SCH (11:41)
[2017-08-21] MEDS: Dextrose 5 %-0.45 % NaCl 1,000 ML IV SCH (12:10)
[2017-08-21 12:27] LABS: Sodium 158 mmol/L (136-145)
--- NOTE | 2017-08-21 13:40 | PRG ---
DATE OF SERVICE: 08/21/2017 SUBJECTIVE: Mrs. Suggs is generally stable. She is on a small amount of propofol and recently w as given a dose of morphine. She is quite purposeful with movement and to stimulus is especially pur poseful with meaningful right hemiparesis. There is no eye opening even to stimulus and I am not convinced there is any following of commands. I am also not convinced that there is any definitive pupillary reaction and the pupils are currently at approximately 4 mm. There is left gaze deviation. Overall, the patient remained stable neurologically and hemodynamically. We will defer to the ICU te am regarding weaning from the ventilator. I suspect that we will be dealing with an extended duratio n of right hemiparesis and bilateral extraocular movement dysfunction, but her long-term prognosis re og reasonable. I updated her in detail. We will also change her IV fluids to D5 half normal saline from nor mal saline given the gradual increasing sodium and chloride.
--- NOTE | 2017-08-21 17:16 | PRG ---
DATE OF SERVICE: 08/21/2017 SUBJECTIVE: Ms. Browning is not following commands. OBJECTIVE: VITAL SIGNS: Heart rate 83, respiratory rate 16, oximetry is 98, blood pressure 105/55. LUNGS: Clear. HEART: Regular rhythm. ABDOMEN: Soft. EXTREMITIES: Without asymmetry. Her sedation is held. She still does not move her right side. LABORATORY DATA: White count 11.4, hemoglobin 10.3, platelets 146,000. Sodium 159, potassium 3.1, chloride 131, bicarbonate 21, BUN 13, creatinine 0.64 , pH 7.45, CO2 of 30, pO2 of 69. IMPRESSION: 1. Status post thrombotic cerebrovascular accident with hemiparesis. 2. Respiratory failure. 3. Status post resection of a meningioma. 4. Iatrogenic hyperosmolar state. PLAN: Continue supportive care until she is safely weanable at this time. Critical care time 30 minutes. MTDD
[2017-08-21 18:44] LABS: Sodium 156 mmol/L (136-145)
[2017-08-21] MEDS: Pantoprazole 40 MG VIAL IVP SCH (21:02)
[2017-08-22 00:44] LABS: Sodium 156 mmol/L (136-145)
[2017-08-22] MEDS: Morphine 4 MG/ML VIAL SLOW IVP PRN (02:19)
[2017-08-22] MEDS: Dexamethasone 4 mg/ml Vial SLOW IVP SCH ×4 (02:19→18:40)
[2017-08-22] MEDS: Dextrose 5 %-0.45 % NaCl 1,000 ML IV SCH ×2 (02:23→16:30)
[2017-08-22] MEDS: Propofol 1,000 MG/100 ML VIAL IV PRN ×2 (02:24→12:42)
[2017-08-22] MEDS: Levothyroxine 100 MCG SDV IVP SCH (06:07)
[2017-08-22 06:25] LABS: #Lymphocytes 0.8 thou/uL (1.20-3.40); #Monocytes 0.4 thou/uL (0.11-0.59); #Neutrophils 8.3 thou/uL (1.40-6.50); %Basophils 0.4 % (0.0-1.0); %Eosinophils 0.2 % (0.0-10.0); %Monocytes 3.9 % (0.0-10.0); %Neutrophils 87.4 % (42.0-75.0); Hemoglobin 11.7 g/dL (12.0-16.0); Mean Corpuscular HGB CONC 31.2 g/dL (32.0-36.0); Mean Corpuscular Hemoglobin 28.7 pg (27.0-31.0); Mean Platelet Volume 9.1 fL (7.4-10.4); Platelet Count 155 thou/uL (130-400); RBC Distribution Width 14.3 % (11.5-14.5); Red Blood Cell (RBC) Count 4.09 mill/uL (4.20-5.40); White Blood Cell (WBC) Count 9.4 thou/uL (4.8-10.8)
[2017-08-22] MEDS: Insulin Regular 300 UNITS/3 ML VIAL SC PRN ×2 (06:26→13:52)
[2017-08-22 06:33] LABS: Sodium 157 mmol/L (136-145)
[2017-08-22 06:35] LABS: Actual Bicarbonate (HCO3a) 22.4 mEq/L (22-26); Base Excess (BEa) -2.3 mEq/L (0 (+/-) 2.5); CO2 Tension 38.1 mmHg (35.0-45.0); Calcium, Ionized 1.4 mmol/L (1.12-1.30); Hematocrit-ABG 30.4 % (36.0-47.0); Hemoglobin (Hb) 11.1 g/dL (12.0-16.0); O2 Tension (PaO2) 77.7 mmHg (80.0-100.0); pH, Arterial 7.39 (7.35-7.45)
[2017-08-22 06:36] LABS: ALV-art Gradient 24.405 (0-20); Puncture Site RRA
[2017-08-22 06:38] LABS: Anion Gap 14 mmol/L (10-20); BUN (Urea Nitrogen) 12 mg/dL (9.8-20.1); Calc. Creatinine Clearance 100 mL/min (70-130); Calcium 9.2 mg/dL (7.8-10.44); Carbon Dioxide 19 mmol/L (22-29); Estimated GFR-MDRD Greater than 90; Glucose 221 mg/dL (70-105); Potassium 3.3 mmol/L (3.5-5.1); Sodium 156 mmol/L (136-145)
[2017-08-22 06:49] LABS: Chloride 126 mmol/L (98-107)
--- NOTE | 2017-08-22 07:39 | RAD ---
AP VIEW CHEST: DATE: 08/22/17. HISTORY: Ventilator-dependent patient. COMPARISON: Comparison is made to previous exam from previous exam from 08/21/17. FINDINGS: AP view chest demonstrates nasogastric and endotracheal tubes to be in place. There is some elevation of the right hemidiaphragm. Pulmonary vascular congestion is seen. Airspace opacity is seen in the right lung base compatible wi th atelectasis or patchy pneumonia. IMPRESSION: Increasing right-sided pleural effusion and airspace opacities in the right lung base. Pulmonary vas cular congestion is seen. POS: [facility]
--- NOTE | 2017-08-22 07:50 | PRG ---
DATE OF SERVICE: 08/22/2017 I saw Ms. Browning in her ICU room this morning. This weekend she remained relatively stable neurol ogically throughout the weekend. Her IV fluid was changed yesterday in order to gently let her sodi um trend back towards normal. Vitals have been stable overnight. She was able to be weaned off of her Cardene drip and now she rem ains on propofol and on her IV fluids. Even on propofol the stimulus she begins to move purposefully . She is moving 3 extremities well. The right arm is lagging behind, but it moves. I think the lef t pupil reacted today I am not convinced the right one did. There seems to be weakness in the third nerve on the left, but she is not awake enough for that to be definitive. I removed the head wrap an d the incision is well approximated. There is no significant subgaleal swelling. We will continue to follow the sodium as it towards normal. We do not plan any imaging studies for rod vaughn. I will talk to the family about tracheostomy if she is unable to be extubated in the next few days.
[2017-08-22] MEDS: Amlodipine 10 MG TAB PER TUBE SCH (08:57)
--- NOTE | 2017-08-22 09:00 | PRG ---
DATE OF SERVICE: 08/22/2017 She is intubated on the vent, sedated on Diprivan. The nurse tells me that when they cut back on the dose she was agitated and trying to pull on the ET tube. She is status post a suprasellar mass removed. Subsequent right-sided hemiparesis, respiratory failu re. PHYSICAL EXAMINATION: VITAL SIGNS: Blood pressure 139/59, sats 94, respiration rate 18, afebrile. CHEST: Chest reveals decreased breath sounds, no wheezing. CARDIAC: Normal S1, S2, no gallops. ABDOMEN: Soft. EXTREMITIES: No edema. Her right hemidiaphragm is elevated. LABORATORY: Otherwise, a white count of 9000, H&H 11 and 37, platelet count 55, pO2 77, PCO2 38, pH 7.39, rate of 14-21%. Sodium 157, chloride 126 from mannitol she has received. IMPRESSION: 1. Status post craniotomy. 2. Right hemiparesis. 3. Respiratory failure. PLAN: She is now on Decadron, Keppra, supportive care, IV fluids. She is not weanable at this stage. We will follow. One-half hour critical care time.
[2017-08-22 12:21] LABS: Sodium 156 mmol/L (136-145)
[2017-08-22] MEDS: Pantoprazole 40 MG VIAL IVP SCH (21:14)
[2017-08-23] MEDS: hydrALAZINE 20 MG/ML VIAL SLOW IVP PRN ×2 (02:14→03:58)
[2017-08-23] MEDS: Propofol 1,000 MG/100 ML VIAL IV PRN (03:59)
[2017-08-23] MEDS: Dextrose 5 %-0.45 % NaCl 1,000 ML IV SCH ×2 (03:59→17:41)
[2017-08-23] MEDS: Dexamethasone 4 mg/ml Vial SLOW IVP SCH ×2 (05:10→17:41)
[2017-08-23] MEDS: Levothyroxine 100 MCG SDV IVP SCH (05:11)
[2017-08-23] MEDS: niCARdipine HCl 50 MG in Sodium Chloride 0.9% 250 ML 230 ML IVPB SCH ×3 (05:11→18:52)
[2017-08-23 05:41] LABS: Anion Gap 8 mmol/L (10-20); BUN (Urea Nitrogen) 18 mg/dL (9.8-20.1); Calc. Creatinine Clearance 89 mL/min (70-130); Calcium 9.3 mg/dL (7.8-10.44); Carbon Dioxide 30 mmol/L (22-29); Chloride 116 mmol/L (98-107); Estimated GFR-MDRD Greater than 90; Glucose 212 mg/dL (70-105); Potassium 3.4 mmol/L (3.5-5.1); Sodium 151 mmol/L (136-145)
[2017-08-23 06:32] LABS: Hemoglobin 11.4 g/dL (12.0-16.0); Mean Corpuscular Hemoglobin 28.1 pg (27.0-31.0); Mean Corpuscular Volume 90.6 fl (81.0-99.0); Mean Platelet Volume 8.8 fL (7.4-10.4); Platelet Count 157 thou/uL (130-400); Red Blood Cell (RBC) Count 4.07 mill/uL (4.20-5.40); White Blood Cell (WBC) Count 10.5 thou/uL (4.8-10.8)
--- NOTE | 2017-08-23 07:39 | PRG ---
DATE OF SERVICE: 08/23/2017 SUBJECTIVE: I returned to see Ms. Browning in her ICU room this morning. She remains intubated. Ary paula do not report any significant events and her urine output remains high. Her highest temperatur e recorded was 99.8. She is back on a Cardene drip, but her blood pressure is in the 130s to 140s cu rrently. Even when propofol running, she is arousable. She moves 3 extremities fairly briskly inclu ding both lower extremities and the left arm. The right arm is slower, but with enough stimulants sh e begins to move it. She has a left gaze preference today. I think her left pupil reacted for me, I am not sure about the right. Incision looks well approximated and healing nicely. Her sodium is do wn this morning to 151, most likely due to the 1 dose of DDAVP that was given overnight. White blood cell count is 10.5. If Mr. Browning is not extubated today, we are going to place a consultation tomorrow under the [facility] for tracheostomy and gastrostomy. I think these are entirely temporary maneuvers and I anticipate continue improvement. I discussed it with Mr. Karen Browning, her , yest erday evening on the phone and he is anticipating that consultation if we fail to extubate.
[2017-08-23 08:27] LABS: Band 2 % (5-11); Lymphocytes 8 % (21-51); MDiff Complete? YES; Monocytes 6 % (0-10); Myelocyte 1 % (0-0); Neutrophil 80 % (42-75); PLT Morphology Comment Appears Adequate; RBC Morphology Normal; Reactive Lymphocytes 3 % (0-10)
--- NOTE | 2017-08-23 08:33 | RAD ---
PORTABLE CHEST: Date: 08/23/17 HISTORY: Respiratory distress. COMPARISON: Prior day's exam. FINDINGS: Endotracheal and NG tubes remain in satisfactory position. Elevation of right hemidiaphragm is unchan ged. Parenchymal changes in the right base are stable. Some of the atelectatic changes in the left ba se are improved. IMPRESSION: Relatively stable exam. POS: [facility]
--- NOTE | 2017-08-23 08:42 | PRG ---
DATE OF SERVICE: 08/23/2017 This is a 57-year-old female, intubated on the vent, sedated on Diprivan. PHYSICAL EXAMINATION: VITAL SIGNS: Pulse is 98, sats 95%, respiratory 22, blood pressure 140/70. NEURO: She is not moving the right side, but she clearly moving her left side. CHEST: Chest revealed rhonchi. CARDIAC: Normal S1, S2. ABDOMEN: Soft, no masses. LABORATORY: Sodium has improved to 151. White count 10,000, H&H 11 and 36, platelet count normal. X-ray shows elevated right hemidiaphragm. IMPRESSION: 1. Status post craniotomy with residual left hemiparesis. 2. Respiratory failure. 3. Hypertension. 4. Electrolyte imbalance. 5. Status post cerebrovascular accident. Will assess the situation once all sedation has been withheld. She is not weanable. Trach and a PEG . One-half hour critical care time.
[2017-08-23] MEDS ORDERED: Losartan 25 MG TAB PO SCH ×2 (09:00→21:00)
[2017-08-23] MEDS: Amlodipine 10 MG TAB PER TUBE SCH (09:31)
[2017-08-23] MEDS: Insulin Regular 300 UNITS/3 ML VIAL SC PRN ×2 (12:37→17:56)
[2017-08-23 13:12] LABS: Sodium 147 mmol/L (136-145)
[2017-08-23] MEDS ORDERED: DC Sedation Protocol FS ONE (13:56)
[2017-08-23 18:16] LABS: Sodium 145 mmol/L (136-145)
[2017-08-23] MEDS: Pantoprazole 40 MG VIAL IVP SCH (21:43)
[2017-08-23 23:44] LABS: Sodium 147 mmol/L (136-145)
[2017-08-24] MEDS: niCARdipine HCl 50 MG in Sodium Chloride 0.9% 250 ML 230 ML IVPB SCH ×2 (00:30→05:09)
[2017-08-24] MEDS: Levothyroxine 100 MCG SDV IVP SCH (05:03)
[2017-08-24 06:15] LABS: Band 4 % (5-11); Hemoglobin 12.2 g/dL (12.0-16.0); Lymphocytes 14 % (21-51); MDiff Complete? YES; Mean Corpuscular HGB CONC 31.7 g/dL (32.0-36.0); Mean Corpuscular Hemoglobin 28.1 pg (27.0-31.0); Mean Corpuscular Volume 88.7 fl (81.0-99.0); Mean Platelet Volume 9.3 fL (7.4-10.4); Metamyelocyte 1 % (0-0); Monocytes 6 % (0-10); Neutrophil 75 % (42-75); PLT Morphology Comment Appears Adequate; Platelet Count 165 thou/uL (130-400); RBC Distribution Width 14.1 % (11.5-14.5); Red Blood Cell (RBC) Count 4.35 mill/uL (4.20-5.40); White Blood Cell (WBC) Count 13.8 thou/uL (4.8-10.8)
--- NOTE | 2017-08-24 06:36 | PRG ---
DATE OF SERVICE: 08/24/2017 Ms. Browning was extubated yesterday. I am seeing her this morning in the ICU. Overnight urine out put has remained high, still continuing to check serum sodium on a 6 hourly basis. This morning, Ms. Browning remains on a Cardene drip. Her recent blood pressure was in the 120s. On examination, Ms Katlyn Browning moves to voice. With stimulus she is purposeful and localizes quite briskly with all 4 e xtremities. I believe she squeezed my hand to command. She did not let go to command. She is not o pening her eyes. When I open her eyelids she has a left gaze deviation. There is some third nerve a ctivity on the left side which is better than last week. I believe her left pupil is reactive. Her right is not yet reactive on my examination. She verbalizes some sounds, but no words yet. She stil l remains lethargic. Serum sodium is coming back towards normal with a value of 147 after being in the 150s over the weeke nd and early this week. She had one dose of DDAVP so far and she seems to have made a significant c orrection in her sodium. Her urine specific gravities continue to improve. Ms. Browning is making a slow, but steady recovery. She continues to get better every few days afte r surgery and she was extubated yesterday. I would like her to remain in the ICU as long as she is n eeding IV drip support for blood pressure control. Hopefully, we can begin to make a transition to [facility] care at the end of the week and perhaps inpatient rehabilitation by the time she needs to leave the hospital.
[2017-08-24 06:49] LABS: Anion Gap 14 mmol/L (10-20); BUN (Urea Nitrogen) 18 mg/dL (9.8-20.1); Calc. Creatinine Clearance 89 mL/min (70-130); Calcium 9.7 mg/dL (7.8-10.44); Carbon Dioxide 28 mmol/L (22-29); Chloride 110 mmol/L (98-107); Estimated GFR-MDRD Greater than 90; Glucose 140 mg/dL (70-105); Sodium 148 mmol/L (136-145)
--- NOTE | 2017-08-24 08:26 | RAD ---
PORTABLE CHEST 1 VIEW: Date: 08/24/17 Time: 0447 hours HISTORY: Respiratory distress. FINDINGS/IMPRESSION: Comparison made with exam from previous day. There has been interval removal of the endotracheal tube. Nasogastric tube remains in place. There is continued elevation of the right hemidiaphragm with stable right basilar parenchymal changes. No pne umothoraces or large effusions are seen. POS: [facility]
[2017-08-24] MEDS ORDERED: Losartan 25 MG TAB PO SCH (09:30)
[2017-08-24] MEDS: Amlodipine 10 MG TAB PER TUBE SCH (09:41)
[2017-08-24] MEDS: Dextrose 5 %-0.45 % NaCl 1,000 ML IV SCH ×2 (09:42→21:20)
--- NOTE | 2017-08-24 09:42 | PRG ---
DATE OF SERVICE: 08/24/2017 SUBJECTIVE: This morning, she is in no respiratory distress. She was extubated yesterday. OBJECTIVE: VITAL SIGNS: Sats are 100% on room air, temperature is 98.5, blood pressure 130/73, respiration 30. CHEST: Chest revealed no wheezing. CARDIAC: Normal S1, S2, no gallops. ABDOMEN: Soft, no masses. LABORATORY DATA: White count 13,000. Electrolytes are normal. X-RAY FINDINGS: X-ray shows elevated right hemidiaphragm. IMPRESSION: 1. Status post craniotomy. 2. Right-sided hemiparesis. PLAN: Increase blood pressure medications. Supportive care and PT. Eventually long-term placement. She is probably going to need a PEG. She is going to go to care home. We will follow.
[2017-08-24 12:39] LABS: Sodium 146 mmol/L (136-145)
[2017-08-24 17:51] LABS: Sodium 147 mmol/L (136-145)
[2017-08-24] MEDS: Losartan 25 MG TAB PO SCH (20:01)
[2017-08-24] MEDS: hydrALAZINE 20 MG/ML VIAL SLOW IVP PRN ×2 (20:02→21:20)
[2017-08-24] MEDS: Pantoprazole 40 MG GRANULES PACKET PER TUBE SCH (20:02)
[2017-08-24] MEDS: Insulin Regular 300 UNITS/3 ML VIAL SC PRN (21:45)
[2017-08-24 22:08] LABS: Sodium 145 mmol/L (136-145)
[2017-08-24] MEDS ORDERED: Pancrelipase DR 12000 1 CAP FS PRN (22:08)
[2017-08-24] MEDS ORDERED: Sodium Bicarbonate Tab 325 MG TAB PER TUBE PRN (22:08)
[2017-08-25] MEDS: hydrALAZINE 20 MG/ML VIAL SLOW IVP PRN ×4 (00:08→18:04)
[2017-08-25] MEDS: Levothyroxine Sodium 100 MCG TAB PO SCH (05:07)
[2017-08-25] MEDS: Insulin Regular 300 UNITS/3 ML VIAL SC PRN (05:28)
[2017-08-25 05:34] LABS: Band 2 % (5-11); Eosinophils 1 % (0-10); Hemoglobin 12.5 g/dL (12.0-16.0); Lymphocytes 28 % (21-51); MDiff Complete? YES; Mean Corpuscular HGB CONC 31.7 g/dL (32.0-36.0); Mean Corpuscular Hemoglobin 28.1 pg (27.0-31.0); Mean Corpuscular Volume 88.5 fl (81.0-99.0); Mean Platelet Volume 9.7 fL (7.4-10.4); Monocytes 4 % (0-10); Myelocyte 2 % (0-0); Neutrophil 63 % (42-75); Platelet Count 179 thou/uL (130-400); RBC Distribution Width 14.1 % (11.5-14.5); Red Blood Cell (RBC) Count 4.47 mill/uL (4.20-5.40); White Blood Cell (WBC) Count 16.1 thou/uL (4.8-10.8)
[2017-08-25 05:38] LABS: Anion Gap 9 mmol/L (10-20); BUN (Urea Nitrogen) 15 mg/dL (9.8-20.1); Calc. Creatinine Clearance 93 mL/min (70-130); Carbon Dioxide 29 mmol/L (22-29); Chloride 108 mmol/L (98-107); Estimated GFR-MDRD Greater than 90; Glucose 386 mg/dL (70-105); Potassium 3.3 mmol/L (3.5-5.1); Sodium 143 mmol/L (136-145)
--- NOTE | 2017-08-25 06:55 | PRG ---
DATE OF SERVICE: 08/25/2017 I saw Ms. Browning in ICU this morning. She has been off the ventilator. Some of her medicines are being taken p.o. now. Her tube feeds are going well with very little residual. Nursing staff repor ts she is moving the right arm when enough stimulus is provided. Blood pressures have been 140s to 1 50s. She has had to be put back on the Cardene drip and therefore we have kept her in the ICU. This morning her neurological examination is marginally improved, with stimulus she opens her eyes. She verbalizes some noise. She is very purposeful with 3 extremities, weak on the right arm, but with en ough stimulus that seems to flex towards the stimulus. White blood cell count is up, the urine looks a bit cloudy to me. The sodium is correcting itself and is now 143. Ms. Browning continues to recover from resection of suprasellar meningioma complicated by small thal amic/midbrain stroke. It is unclear what level of optic nerve function she will have. The left pupi l seems to move, the right pupil does not seem to move. I am encouraged that we find a small improve ment in her neurological function. We are going to send some urine for urinalysis and urine culture. We will keep an eye on the white c ount. I am going to switch back from hypotonic to isotonic fluids.
[2017-08-25 07:57] LABS: Bilirubin Negative (Negative); Blood, Urine Moderate (Negative); Clarity CLOUDY (Clear); Glucose, Urine (Dipstick) Negative (Negative); Leukocyte Large (Negative); Nitrite Negative (Negative); Protein, Urine (Dipstick) Negative (Neg-Trace); Specific Gravity, Urine 1.008 (1.002-1.036); pH, Urine 7.5 (5.0-9.0)
[2017-08-25 07:59] LABS: Bacteria/HPF 2+ HPF (None Seen); Hyaline Casts/LPF 4-6 HYALINE CAST LPF (0-3 Hyaline); Pathc Cast-AUWi Flag 0.87 (0-2.49); Squamous Epithelial 0-3 HPF (0-3)
[2017-08-25] MEDS: Sodium Chloride 0.9% 1,000 ML IV SCH ×2 (08:11→22:27)
[2017-08-25] MEDS: Losartan 25 MG TAB PO SCH ×2 (08:12→20:31)
[2017-08-25] MEDS: Amlodipine 10 MG TAB PER TUBE SCH (08:13)
--- NOTE | 2017-08-25 09:20 | PRG ---
DATE OF SERVICE: 08/25/2017 She still remains encephalopathic, moving her left side only. PHYSICAL EXAMINATION: VITAL SIGNS: Blood pressure 110/80. She has got a blood pressure this morning, pulse 88, respiratio n rate 18, no distress. CHEST: Chest reveals decreased breath sounds, no wheezing. CARDIAC: Normal S1, S2. No gallops. ABDOMEN: Soft, no masses. LABORATORY DATA: White count 16,000. Electrolytes are normal, potassium 3.3. Urine has got apparen tly some blood. IMPRESSION: 1. Status post craniotomy. 2. Respiratory failure. 3. Hypertension. PLAN: Continue present antihypertensive medication. Eventually placement. I will follow while in the ICU.
[2017-08-25 16:07] LABS: Sodium 150 mmol/L (136-145)
[2017-08-25] MEDS: Pantoprazole 40 MG GRANULES PACKET PER TUBE SCH (20:31)
[2017-08-26] MEDS: hydrALAZINE 20 MG/ML VIAL SLOW IVP PRN ×3 (00:40→19:35)
[2017-08-26 05:21] LABS: #Eosinphils 0.7 thou/uL (0.0-0.7); #Lymphocytes 2.2 thou/uL (1.20-3.40); #Monocytes 1.3 thou/uL (0.11-0.59); #Neutrophils 9.5 thou/uL (1.40-6.50); %Basophils 0.1 % (0.0-1.0); %Eosinophils 5.4 % (0.0-10.0); %Lymphocytes 15.7 % (21.0-51.0); %Monocytes 9.7 % (0.0-10.0); %Neutrophils 69.1 % (42.0-75.0); Hemoglobin 13.7 g/dL (12.0-16.0); Mean Corpuscular Hemoglobin 28.3 pg (27.0-31.0); Mean Corpuscular Volume 88.5 fl (81.0-99.0); Mean Platelet Volume 9.1 fL (7.4-10.4); Platelet Count 173 thou/uL (130-400); RBC Distribution Width 13.9 % (11.5-14.5); Red Blood Cell (RBC) Count 4.85 mill/uL (4.20-5.40); White Blood Cell (WBC) Count 13.8 thou/uL (4.8-10.8)
[2017-08-26 05:27] LABS: Anion Gap 13 mmol/L (10-20); BUN (Urea Nitrogen) 11 mg/dL (9.8-20.1); Calc. Creatinine Clearance 122 mL/min (70-130); Calcium 9.6 mg/dL (7.8-10.44); Carbon Dioxide 22 mmol/L (22-29); Chloride 114 mmol/L (98-107); Estimated GFR-MDRD Greater than 90; Glucose 109 mg/dL (70-105); Potassium 3.4 mmol/L (3.5-5.1); Sodium 146 mmol/L (136-145)
[2017-08-26] MEDS: Levothyroxine Sodium 100 MCG TAB PO SCH ×2 (05:35→09:50)
--- NOTE | 2017-08-26 06:55 | PRG ---
DATE OF SERVICE: 08/26/2017 I saw Ms. Browning in the ICU this morning. She is beginning to make significant improvements in he r neurological function, according to the nurses. Her vital signs have been relatively stable, but s he has needed IV blood pressure medication overnight at least twice. This morning, Ms. Browning att empts to say good morning to me. She is following commands for me with 4 extremities. She opened he r eyes to stimulus. She tells me she cannot see me from the right eye, but she might be able to from the left. This level of interaction and communication is significantly improved. Her white blood c ell count is down to 13.8. Her sodium is 146. I think Ms. Browning is improving nicely. Once our colleagues in the Critical Care Medicine feels s he is safe for transfer to the floor we can make arrangements for that to happen. She will need to b e on some oral antihypertensives to keep her blood pressure under control. We are continuing to farideh t a urinary tract infection and we are keeping a close eye on sodium with twice daily sodium measurem ents. She seems to be keeping it closer to normal.
--- NOTE | 2017-08-26 08:36 | RAD ---
PORTABLE SUPINE AP ABDOMINAL RADIOGRAPH: Date: 08/26/17 HISTORY: Evaluate nasogastric tube placement. FINDINGS: Nasogastric tube is not visualized on this examination. No radiopaque density is seen overlying the e xpected location of the most distal esophagus. There is gaseous distention of the stomach. There is m ild elevation of the right hemidiaphragm. Bowel gas pattern is nonspecific. IMPRESSION: Nasogastric tube is not visualized on this exam. There is gaseous distention of the stomach. POS: RICHARD
--- NOTE | 2017-08-26 08:44 | PRG ---
DATE OF SERVICE: 08/26/2017 This morning she appears stable. PHYSICAL EXAMINATION: VITAL SIGNS: Blood pressure 116/80, sats 100% on room air, respirations are 20. She is afebrile. Urine appears to shows gram negative isabella. Feedings are being tolerated. CHEST: Chest reveals no wheezing or crackles. CARDIAC: Normal S1, S2. No gallops. ABDOMEN: Soft, no masses. LABORATORY: Sodium is 146. White count 13,000. IMPRESSION: 1. Status post craniotomy. 2. Hypertension. 3. Respiratory failure. 4. Probably urinary tract infection. PLAN: She can be transferred out of the ICU. Blood pressure appears to be well controlled. Probably treat UTI once we have the cultures back. Pulmonary Critical Care will follow at a distance once she is out of the ICU.
[2017-08-26] MEDS: Amlodipine 10 MG TAB PER TUBE SCH (09:50)
[2017-08-26] MEDS: Losartan 25 MG TAB PO SCH ×3 (09:53→21:04)
[2017-08-26] MEDS: Sodium Chloride 0.9% 1,000 ML IV SCH (09:53)
[2017-08-26] MEDS ORDERED: Ketamine 50 MG/ML VIAL ONE (15:41)
[2017-08-26] MEDS ORDERED: PROPOFOL 200 MG/20 ML VIAL ONE (17:39)
[2017-08-26 19:47] LABS: Sodium 151 mmol/L (136-145)
[2017-08-26] MEDS: Pantoprazole 40 MG GRANULES PACKET PER TUBE SCH (20:45)
[2017-08-26] MEDS ORDERED: Lorazepam 2 MG/ML VIAL SLOW IVP SCH (22:30)
[2017-08-27] MEDS: Sodium Chloride 0.9% 1,000 ML IV SCH ×3 (02:20→22:14)
--- NOTE | 2017-08-27 02:34 | OP ---
DATE OF PROCEDURE: 08/26/2017 PROCEDURES: EGD with PEG tube placement. PREPROCEDURE DIAGNOSIS: Oropharyngeal dysphagia after stroke. POSTPROCEDURE DIAGNOSES: 1. A small hematoma noted in the oropharynx, probably from previous NG tube placement. 2. PEG tube placed by Ponsky pull technique. ANESTHESIA: 2 g Ancef. RECOMMENDATIONS: Begin tube feeds in 4 hours, can use tube for meds now. PROCEDURE IN DETAIL: After the patient was informed of the risks, benefits, possible complications o f endoscopy including perforation, bleeding, reaction to medication, aspiration and indications for P EG tube placement, informed consent was obtained. The patient was brought to endoscopy suite where s he was sedated orifice. The endoscope was advanced through the esophagus, stomach, second and third portion of the duodenum. Adequate place for PEG tube placement was identified by transillumina tion and finger indentation and PEG tube was placed by Ponsky pull technique. Second look confirmed good placement. Abdomen was dressed and the patient returned to the ICU in stable condition.
--- NOTE | 2017-08-27 02:52 | CON ---
DATE OF CONSULTATION: 08/26/2017 REASON FOR CONSULTATION: Oropharyngeal dysphagia. HISTORY OF PRESENT ILLNESS: Ms. Cervantes is a 57-year-old female with who has been asked to see with regard to PEG tube placement urgently today as they cannot give her medications to control blood pressure or feed her and she will get an NG tube placed. She underwent a suprasellar meningioma resection on . She was intubated for a time in the ICU and was intubated, and slowly waking up, but still is not completely with it. Neurosurgery felt that she was much improved today than she needs acess for oral hypertensive medications and tube feeds. She has been unable to have a NG tube placed. She has been unable to take p.o. PAST MEDICAL HISTORY: Coronary artery disease, hypertension, hypothyroidism, chronic back pain. PAST SURGICAL HISTORY: 1. Transsphenoidal resection / craniatomy of sellar and suprasellar lesion. 2. Scar of left neck from previous carotid endarterectomy versus thyroid surgery. 3. Stroke after surgery. MEDICATIONS PRIOR TO ADMISSION: Hydralazine, levothyroxine, Tylenol #3, and tramadol. PRESENT MEDICATIONS: Now, Maalox, DuoNeb, Norvasc, Benadryl, Apresoline, Humalog sliding scale, Normodyne p.r.n., levetiracetam 500 mg daily, Synthroid, Creon p.r.n. per tube feed protocol if she is having her tube in, Cozaar, magnesium, nicardipine, Pantoprazole, and potassium replacement. PHYSICAL EXAMINATION: GENERAL: Patient is resting in bed opens right eye . She follows some commands today for Neurosurgery, but does not for me. HEENT: Oropharynx without lesions. NECK: Supple, without adenopathy. LUNGS: Clear. HEART: Regular. VITAL SIGNS: Pulse 65, blood pressure 150/83. ABDOMEN: Soft, nontender. There is no rebound, masses, scars. LABORATORY AND X-RAY FINDINGS: White count 13, hemoglobin 13.7, platelet count 173. INR is 1.1. Sodium 146, potassium 3.4, BUN and creatinine 11 and 0.55. Urinalysis showed greater than 50 white blood cells. ASSESSMENT: Oropharyngeal dysphagia and nasogastric tube was placed for feeding tube. Today, we are going to get her on oral antihypertensives and going to get her fed. We will proceed with today. Nurses and primary service apparently talked to family about risks and benefits of the procedure and will proceed. LISA
[2017-08-27] MEDS: Levothyroxine Sodium 100 MCG TAB PO SCH (04:59)
[2017-08-27 05:36] LABS: Sodium 150 mmol/L (136-145)
[2017-08-27] MEDS: Losartan 25 MG TAB PO SCH ×2 (09:53→22:13)
[2017-08-27] MEDS: Amlodipine 10 MG TAB PER TUBE SCH (09:54)
--- NOTE | 2017-08-27 10:40 | PRG ---
DATE OF SERVICE: 08/27/2017 NEUROSURGERY NOTE SUBJECTIVE: I am seeing Ms. 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 Yesterday, a PEG tube was placed and during that time, the PEG t ube was not confirmed to be useful, she did not get her oral antihypertensives. She needed some IV a ntihypertensive medication to keep her blood pressure below 140. Otherwise, she did well overnight. Vitals this morning look reasonably stable, one measurement of her systolic blood pressure was 151. Her heart rates in the 90s-100s. On examination, she opens her eyes to enough stimulus, she says so unds. She attempts to say good morning, although the words are not quite intelligible yet. There is an attempt to speak. She does follow commands more so on the left than the right. Right arm is sti ll weak, but it moves. She does tell me that she sees me through her left eye. Sodium this morning is 150, the PEG is being used for tube feeds, IV fluid is still going at 75 mL an hour. Plan for today is to slowly increase tube feeds and flushes until she is meeting on her calor ic and fluid requirements and then stop her IV fluids. When her blood pressure is under reasonable c ontrol with her home antihypertensives, she can be transferred out of the ICU to floor care. We will begin looking for placement. She continues to slowly improve over time.
--- NOTE | 2017-08-27 11:05 | PRG ---
DATE OF SERVICE: 08/27/2017 SUBJECTIVE: This morning, she is awake, responsive. She apparently was verbalizing last night. Uri ne showing E. coli. OBJECTIVE: VITAL SIGNS: Temperature is 97, blood pressure is 148/71, respirations 21, pulse 105. HEENT: She opens her eyes. CHEST: Chest reveals decreased breath sounds without any wheezing. CARDIAC: Normal S1, S2, no gallops. ABDOMEN: Soft, no masses. IMPRESSION: 1. Status post craniotomy. 2. Hypertension. 3. Hypothyroidism. 4. Urinary tract infection. PLAN: We started on Cipro. Continue PT and supportive care. We will follow.
--- NOTE | 2017-08-27 12:07 | ULT ---
BILATERAL LOWER EXTREMITY VENOUS DOPPLER ULTRASOUND EVALUATION: HISTORY: Immobility, postoperative exam. Patient with a history of lower extremity edema. FINDINGS: Multiple longitudinal and transverse images of the right and left lower extremity venous systems are obtained using a multihertz linear ray transducer. Real-time, color flow, and spectral waveform Dopp ler analysis demonstrates no evidence of acute or old clot seen in the right or left common femoral, superficial femoral, femoral profunda, popliteal, posterior tibial vein, post trifurcation veins, and greater saphenous veins. IMPRESSION: No evidence of right or left lower extremity deep venous thrombosis. POS: RICHARD
[2017-08-27] MEDS: hydrALAZINE 20 MG/ML VIAL SLOW IVP PRN ×2 (13:03→18:12)
--- NOTE | 2017-08-27 15:26 | PRG ---
DATE OF SERVICE: 08/27/2017 SUBJECTIVE: Ms. Browning has done well overnight. The she has tried to kept her from p ulling it out. She has had no clinical events overnight. OBJECTIVE: VITAL SIGNS: Temperature 97.5, pulse 114-75, blood pressure 143/81. LUNGS: Clear ; her tube feeds per the nurses. ABDOMEN: Soft, nontender. PEG site is clean and dry with no evidence of erythema or bleeding. Pain was . LABORATORY DATA: Glucose 130. ASSESSMENT: 1. Oropharyngeal dysphagia secondary to stroke after surgery for pituitary tumor. 2. Status post PEG tube, tolerating feeds. PEG tube looks fine. PLAN: At this time, we will defer feeding to primary service. We will sign off. If I can be of fur ther assistance in patient's care, please do not hesitate to contact me.
[2017-08-27 16:45] LABS: Sodium 152 mmol/L (136-145)
[2017-08-27] MEDS: Pantoprazole 40 MG GRANULES PACKET PER TUBE SCH (22:13)
[2017-08-27] MEDS: Cipro 250 MG TAB PO SCH (22:15)
[2017-08-28] MEDS: Cipro 250 MG TAB PO SCH ×2 (05:11→20:02)
[2017-08-28] MEDS: Levothyroxine Sodium 100 MCG TAB PO SCH (05:11)
[2017-08-28] MEDS: hydrALAZINE 20 MG/ML VIAL SLOW IVP PRN ×2 (05:13→12:05)
[2017-08-28 05:33] LABS: Sodium 152 mmol/L (136-145)
[2017-08-28] MEDS: Losartan 25 MG TAB PO SCH ×2 (08:19→21:43)
[2017-08-28] MEDS: Amlodipine 10 MG TAB PER TUBE SCH (08:19)
[2017-08-28 08:34] LABS: Free T4 (Free Thyroxine) 0.98 ng/dL (0.70-1.48)
[2017-08-28 08:41] LABS: Thyroid Stimulating Hormone 0.1018 uIU/mL (0.35-4.94)
--- NOTE | 2017-08-28 09:02 | PRG ---
DATE OF SERVICE: 08/28/2017 SUBJECTIVE: Ms. Browning is still in the ICU. She is 11 days out from craniotomy for suprasellar t umor resection. A PEG has been placed and she is getting tube feeds. We have not met her caloric re quirement or her fluid requirements through a PEG yet, but we will increase those rates today. I do not see her recorded fever. Other vital signs have been stable. Her blood pressure looks to be in the 110s to 130s. On examination, Ms. Browning opens her eyes to voice. She makes sounds. She attempts to communicate with words. She nods her head that she can see through on the left eye, but not the right. She is following commands now with the right hand for me in addition to other extrem ities. Ms. Browning remains a bit sleepy, I am going to get a thyroid panel and a.m. cortisol, unsure her p ituitary function. If it is reasonable, we are going to meet her caloric and water requirements thro ugh her PEG as long as residual stay low. I hope these two maneuvers can get her more awake and out of the ICU.
--- NOTE | 2017-08-28 11:46 | PRG ---
DATE OF SERVICE: 08/28/2017 SUBJECTIVE: Awake, alert and responsive, minimal verbalization, right-sided weakness. OBJECTIVE: VITAL SIGNS: Blood pressure 123/80, sats are 98% on room air, pulse 80, afebrile. CHEST: Chest reveals decreased breath sounds, no wheezing. CARDIAC: Normal S1, S2, no gallops. ABDOMEN: Soft, no masses. IMPRESSION: 1. Craniotomy, right-sided weakness. 2. Hypertension. 3. Dysphagia. 4. Urinary tract infection. PLAN: She can transfer out of the ICU as per Neurosurgery.
[2017-08-28] MEDS: Sodium Chloride 0.9% 1,000 ML IV SCH (12:04)
[2017-08-28 16:28] LABS: Sodium 154 mmol/L (136-145)
[2017-08-28] MEDS: Sodium Chloride 0.45% 1,000 ML IV SCH (17:12)
[2017-08-28] MEDS: Pantoprazole 40 MG GRANULES PACKET PER TUBE SCH (21:43)
[2017-08-29 05:30] LABS: Sodium 148 mmol/L (136-145)
[2017-08-29] MEDS: Levothyroxine Sodium 100 MCG TAB PO SCH (05:32)
[2017-08-29] MEDS: Cipro 250 MG TAB PO SCH ×2 (05:32→20:26)
[2017-08-29] MEDS: Sodium Chloride 0.45% 1,000 ML IV SCH ×2 (05:32→20:30)
--- NOTE | 2017-08-29 07:53 | PRG ---
DATE OF SERVICE: 08/29/2017 NEUROSURGERY NOTE SUBJECTIVE: Ms. Browning is 2 days out from craniotomy for suprasellar meningioma. She is making s low but steady recovery. Her tube feeds were causing a bit of high residual yesterday and held for s ome time. This morning, it did not run as I entered the room. Her sodium drifted out when we change him to half normal saline. The vitals recorded show a low grade fever of 100.4 degrees Fahrenheit. She is under treatment for U TI currently. PHYSICAL EXAMINATION: NEUROLOGIC: Ms. Browning still wakes to loud voice and stimulus. She attempts to say words. She f ollows commands with 4 extremities, although the right arm is the slowest, it moves purposefully and occasionally I will get her to squeeze that right hand. She tells me she can see better with the lef t eye than the right eye. A.m. cortisol was in the normal range, but given her acute medical condition and ought to be elevated . I am going to add some prednisone each morning to see if lack of corticosteroids is keeping her dr reina. Her free T4 is in the normal range. Her TSH was low, but her levothyroxine replacement must b e in a reasonable level. Ms. Browning's issue currently is getting the tube feeds to meet her caloric requirements without hi gh residuals. I will recommend sitting up in the MEDIchair for tube feedings. We could try bolus fe eds once we get on a regimen that stable, we can work with her on floor care.
[2017-08-29] MEDS: predniSONE 20 MG TAB PO SCH (07:57)
--- NOTE | 2017-08-29 08:23 | PRG ---
DATE OF SERVICE: 08/29/2017 This patient is responsive only by movement of her left side. She will not follow any commands for m e. Since my absence she has had a PEG tube placed and she has been extubated. PHYSICAL EXAMINATION: VITAL SIGNS: Temperature 98.5, pulse 107, blood pressure 150/95. 24 hour intake 2837, output 2260. HEENT: Remarkable for surgical scars on the scalp. NECK: No adenopathy, no JVD. LUNGS: Clear without wheezing or rhonchi. CARDIAC: S1, S2, slightly tachycardic. ABDOMEN: Soft, nontender. PEG tube under a binder. EXTREMITIES: No clubbing, cyanosis, or edema. LABORATORY: Demonstrate a sodium of 148. ASSESSMENT: 1. Status post craniotomy for suprasellar mass resection with subsequent perioperative stroke. 2. Altered mental status. 3. Hypertension. 4. Urinary tract infection. PLAN: It appears that she is ready to transfer out to the floor. She is going to need extensive adam rologic rehabilitation. She has been placed on corticosteroids. Prognosis seems poor.
[2017-08-29] MEDS: Amlodipine 10 MG TAB PER TUBE SCH (08:40)
[2017-08-29] MEDS: Losartan 25 MG TAB PO SCH ×2 (08:40→20:26)
[2017-08-29] MEDS: levETIRAcetam 500 mg/5 ml Oral Solution PER TUBE SCH ×2 (08:44→20:24)
[2017-08-29 13:46] VITALS: BMI 21.8
[2017-08-29] MEDS: hydrALAZINE 20 MG/ML VIAL SLOW IVP PRN (20:24)
[2017-08-29] MEDS: Pantoprazole 40 MG GRANULES PACKET PER TUBE SCH (20:26)
[2017-08-30] MEDS: Cipro 250 MG TAB PO SCH ×2 (06:01→20:49)
[2017-08-30] MEDS: Levothyroxine Sodium 100 MCG TAB PO SCH (06:01)
[2017-08-30 07:10] LABS: Bilirubin Negative (Negative); Blood, Urine Negative (Negative); Clarity CLOUDY (Clear); Glucose, Urine (Dipstick) Negative (Negative); Leukocyte Large (Negative); Nitrite Negative (Negative); Protein, Urine (Dipstick) Negative (Neg-Trace)
[2017-08-30 07:10] LABS: #Eosinphils 0.2 thou/uL (0.0-0.7); #Lymphocytes 1.7 thou/uL (1.20-3.40); #Monocytes 1.1 thou/uL (0.11-0.59); %Basophils 0.4 % (0.0-1.0); %Eosinophils 2.1 % (0.0-10.0); %Lymphocytes 15.6 % (21.0-51.0); %Monocytes 9.5 % (0.0-10.0); %Neutrophils 72.4 % (42.0-75.0); Hemoglobin 12.3 g/dL (12.0-16.0); Mean Corpuscular HGB CONC 31.8 g/dL (32.0-36.0); Mean Corpuscular Hemoglobin 28.3 pg (27.0-31.0); Mean Platelet Volume 8.6 fL (7.4-10.4); Platelet Count 246 thou/uL (130-400); RBC Distribution Width 14.1 % (11.5-14.5); Red Blood Cell (RBC) Count 4.35 mill/uL (4.20-5.40); White Blood Cell (WBC) Count 11.1 thou/uL (4.8-10.8)
[2017-08-30 07:11] LABS: Bacteria/HPF None Seen HPF (None Seen); Pathc Cast-AUWi Flag 1.16 (0-2.49)
[2017-08-30 07:13] LABS: Yeast-AUWi Flag 2169.4 (0-25.0)
[2017-08-30 07:23] LABS: Hyaline Casts/LPF 0-3 HYALINE CAST LPF (0-3 Hyaline); RBC/HPF 0-3 HPF (0-3); Transitional Epithelial 0-3 HPF (0-3); Yeast-All Forms 3+ HPF (None Seen)
[2017-08-30 07:35] LABS: Anion Gap 15 mmol/L (10-20); BUN (Urea Nitrogen) 11 mg/dL (9.8-20.1); Calc. Creatinine Clearance 87 mL/min (70-130); Calcium 9.9 mg/dL (7.8-10.44); Carbon Dioxide 20 mmol/L (22-29); Chloride 114 mmol/L (98-107); Estimated GFR-MDRD Greater than 90; Glucose 121 mg/dL (70-105); Potassium 3.6 mmol/L (3.5-5.1); Sodium 145 mmol/L (136-145)
--- NOTE | 2017-08-30 07:45 | PRG ---
DATE OF SERVICE: 08/30/2017 I saw Ms. Browning in her hospital room this morning. She has been out of the ICU. She remains on tube feeds with better residuals. There were no reported events overnight. I do not see any fevers recorded in the last 24 hours. Blood pressures have been reasonably well controlled in the 130s to 1 50s. This morning Ms. Browning is a little more interactive than she has been. When I stimulate he r, she asked me to stop multiple times. She opens her eyes on both sides. She looks around the room . She cannot tell me whether she can count fingers or see me. She is moving her right upper extremi ty more so than yesterday. I am happy that Ms. Browning is more interactive, perhaps the additional steroid medication will be accompanied with improvement this week. I think her surgical karel can be removed as early as or and her neurological examination is very slowly improving, but headed in the right d irection. We will check her sodium this morning and daily. We will check a CBC as well.
--- NOTE | 2017-08-30 08:33 | PRG ---
DATE OF SERVICE: 08/30/2017 SUBJECTIVE: The patient continues to be encephalopathic. She moves around, was not responding to co mmands. PHYSICAL EXAMINATION: VITAL SIGNS: Temperature 96.7, pulse 89, respiration 19, O2 sat 99%, blood pressure 144/84. HEENT: Unremarkable. NECK: No JVD. CHEST: Clear. CARDIAC: S1 and S2 regular. ABDOMEN: Soft. EXTREMITIES: No edema. LABORATORY DATA: White blood cell 11.1, hematocrit 38.8, platelet count 246. Sodium 145, potassium 3.6, chloride 114, CO2 20, BUN 11, creatinine 0.6, glucose 121. ASSESSMENT: 1. Cerebrovascular accident in the perioperative period after suprasellar mass resection. 2. Status post PEG tube placement. 3. Hypertension. PLAN: Continue general supportive care. Her condition is very unfortunate and I am not sure we are going to see any improvement beyond her current level of functioning.
[2017-08-30] MEDS: Amlodipine 10 MG TAB PER TUBE SCH (10:00)
[2017-08-30] MEDS: Losartan 25 MG TAB PO SCH ×2 (10:00→21:52)
[2017-08-30] MEDS: levETIRAcetam 500 mg/5 ml Oral Solution PER TUBE SCH ×2 (10:01→21:52)
[2017-08-30] MEDS: Sodium Chloride 0.45% 1,000 ML IV SCH ×2 (10:01→23:22)
[2017-08-30] MEDS: predniSONE 20 MG TAB PO SCH (10:01)
[2017-08-30] MEDS: Pantoprazole 40 MG GRANULES PACKET PER TUBE SCH (21:52)
[2017-08-30] MEDS: Docusate Sodium 100 MG/10 ML UDCUP PER TUBE PRN (21:52)
--- NOTE | 2017-08-31 07:08 | PRG ---
DATE OF SERVICE: 08/31/2017 I saw Ms. Browning in her hospital room this morning. Her family says she was more awake yesterday and tried to sit up and get out of bed. They also reports that she held up 4 fingers when respirator y therapy asked her how many fingers he was holding up indicating some degree of vision. Overnight I do not see any fevers recorded. I think Ms. Browning is more alert this morning. She is following commands quite easily on the left side. She is moving the right side purposefully. She is not quit e following commands on the right as fast as the left, but it is quite purposeful. The incision is h ealing nicely. My plan for Ms. Browning is to see how much further progress there is over the weekend and see if bryan is a candidate for rehab by Tuesday, if not [facility] facility for a week or two might be the place to go. [place] can be removed on Tuesday. There is some fluid, likely CSF under the scalp and keeping the karel in a couple extra days I think it is worthwhile.
[2017-08-31] MEDS: Levothyroxine Sodium 100 MCG TAB PO SCH (07:18)
[2017-08-31] MEDS: Cipro 250 MG TAB PO SCH ×2 (07:18→20:50)
[2017-08-31 07:25] LABS: Anion Gap 13 mmol/L (10-20); BUN (Urea Nitrogen) 12 mg/dL (9.8-20.1); Calc. Creatinine Clearance 86 mL/min (70-130); Calcium 9.9 mg/dL (7.8-10.44); Carbon Dioxide 23 mmol/L (22-29); Chloride 109 mmol/L (98-107); Estimated GFR-MDRD Greater than 90; Glucose 106 mg/dL (70-105); Potassium 3.5 mmol/L (3.5-5.1); Sodium 141 mmol/L (136-145)
[2017-08-31] MEDS: levETIRAcetam 500 mg/5 ml Oral Solution PER TUBE SCH ×2 (09:53→20:50)
[2017-08-31] MEDS: predniSONE 20 MG TAB PO SCH (09:54)
[2017-08-31] MEDS: Losartan 25 MG TAB PO SCH ×2 (09:54→20:50)
[2017-08-31] MEDS: Amlodipine 10 MG TAB PER TUBE SCH (09:55)
[2017-08-31] MEDS: Sodium Chloride 0.45% 1,000 ML IV SCH (18:04)
[2017-08-31] MEDS: Pantoprazole 40 MG GRANULES PACKET PER TUBE SCH (20:50)
[2017-08-31] MEDS: Milk Of Magnesia 30 ML UDCUP PER TUBE PRN (20:50)
[2017-09-01] MEDS: Cipro 250 MG TAB PO SCH ×2 (05:40→20:42)
[2017-09-01] MEDS: Levothyroxine 150 MCG TAB PO SCH (05:40)
--- NOTE | 2017-09-01 08:15 | PRG ---
DATE OF SERVICE: 09/01/2017 I saw Ms. Browning in her hospital room this morning. There were no fevers over the night and her sodium was within normal limits yesterday. Overall, her vitals are stable. Ms. Browning is following commands on the right side, She gave me a good glaze maker strength with the right, the left side is less purposeful at this time. The family states that during the day she uses both hands and she opens her left eye at times. Her incision is healing well. The plan for Ms. Browning is to send her to rehab facility. She has a bed at one of the rehab facilities and if the family is in agreement she should go before the weekend. We will remove the karel prior to her discharge. LISA
[2017-09-01] MEDS: Losartan 25 MG TAB PO SCH ×2 (08:18→20:42)
[2017-09-01] MEDS: predniSONE 20 MG TAB PO SCH (08:19)
[2017-09-01] MEDS: levETIRAcetam 500 mg/5 ml Oral Solution PER TUBE SCH ×2 (08:19→20:42)
[2017-09-01] MEDS: Amlodipine 10 MG TAB PER TUBE SCH (08:19)
--- NOTE | 2017-09-01 12:22 | PRG ---
DATE OF SERVICE: 09/01/2017 Ms. Browning is now 15 days into her hospitalization for planum sphenoidale meningioma resection. Postoperatively, she had a left thalamic infarct. She neurologically; however, has demonstrated continued sustained improvement. This morning on her exam she prefers to keep her eyes closed, but is very active in moving her left upper extremity and does have delayed movement in her right upper extremity. She moves her legs as well spontaneously. She is nonverbal for me this morning. I have conferred with Dr. Jurado's Physician Court Worker and also Dr. Jurado and this is how she has been in the postoperative process, but continuing to improve. While she does not consistently follow commands for me today, she certainly does move the left upper extremity spontaneously and follows commands at times as well. She has been accepted for transfer and we will arrange for this. We will continue her medications as they currently are. Her wound is healing well and at this point I think we will remove her karel, as I see no fluid collection under the wound. LISA
[2017-09-01] MEDS: Docusate Sodium 100 MG/10 ML UDCUP PER TUBE PRN (12:51)
--- NOTE | 2017-09-01 16:00 | PQF ---
CLINICAL DOCUMENTATION IMPROVEMENT CLARIFICATION FORM: ICD-10 Updated PLEASE DO AN ADDENDUM TO THE PROGRESS NOTE WITH ANY DOCUMENTATION UPDATES OR ADDITIONS AND CARRY THROUGH TO DC SUMMARY. THANK YOU. DATE: 09/01/17 ATTN: Dr. Jurado Please exercise your independent, professional judgment in responding to the clarification form. Clinical indicators are provided on the bottom of this form for your review Please check appropriate box(s): [ ] UTI please specify if due to or related to (as applicable): [ ] Indwelling catheter [ ] Unable to determine etiology [ ] Other diagnosis [ ] Unable to determine In addition, please specify: Present on Admission (POA): [ ] Yes [ ] No [ ] Unable to determine For continuity of documentation, please document condition throughout progress notes and discharge summary. Thank You. CLINICAL INDICATORS - SIGNS / SYMPTOMS / LABS PULMONOLOGY PN 08/27: URINARY TRACT INFECTION. WE STARTED ON CIPRO MICROBIOLOGY: 08/25/17 URINE CULTURE. ESCHERICHIA COLI SOURCE: URINE OBANDO CATHETER 08/30/17 URINE CULTURE: GRAM NEGATIVE SERGEY PRESUMPTIVE ENTEROCOCCUS SP. SOURCE: URINE OBANDO CATHETER RISKS: CPOE 08/17: URINE CATH: OBANDO ONE NURSING INTRAOP RECORD 08/17: OBANDO PLACED USING STERILE TECHNIQUE. TREATMENT: CPOE 08/27: CIPRO 250 MG PO BID (This form is maintained as a part of the permanent medical record) 2014 [employer] All Rights Reserved Nathaly Pavon RN, BSN [email or web address] Office: [phone] [facility]
[2017-09-01] MEDS ORDERED: Magnesium Citrate 300 ML BOT PO SCH (17:15)
[2017-09-01] MEDS: Pantoprazole 40 MG GRANULES PACKET PER TUBE SCH (20:42)
[2017-09-02] MEDS: Cipro 250 MG TAB PO SCH ×2 (05:52→21:12)
[2017-09-02] MEDS: Levothyroxine 150 MCG TAB PO SCH (05:52)
[2017-09-02 08:47] LABS: #Basophils 0.1 thou/uL (0.0-0.2); #Eosinphils 0.2 thou/uL (0.0-0.7); #Lymphocytes 3.5 thou/uL (1.20-3.40); #Monocytes 1.1 thou/uL (0.11-0.59); #Neutrophils 7.9 thou/uL (1.40-6.50); %Basophils 0.7 % (0.0-1.0); %Eosinophils 1.8 % (0.0-10.0); %Lymphocytes 27.5 % (21.0-51.0); %Monocytes 8.3 % (0.0-10.0); %Neutrophils 61.7 % (42.0-75.0); Hemoglobin 12.6 g/dL (12.0-16.0); Mean Corpuscular HGB CONC 32.5 g/dL (32.0-36.0); Mean Corpuscular Hemoglobin 28.3 pg (27.0-31.0); Mean Corpuscular Volume 87.1 fl (81.0-99.0); Mean Platelet Volume 7.5 fL (7.4-10.4); Platelet Count 327 thou/uL (130-400); RBC Distribution Width 13.9 % (11.5-14.5); Red Blood Cell (RBC) Count 4.47 mill/uL (4.20-5.40); White Blood Cell (WBC) Count 12.9 thou/uL (4.8-10.8)
[2017-09-02 09:05] LABS: Anion Gap 12 mmol/L (10-20); BUN (Urea Nitrogen) 20 mg/dL (9.8-20.1); Calc. Creatinine Clearance 62 mL/min (70-130); Calcium 10.2 mg/dL (7.8-10.44); Carbon Dioxide 26 mmol/L (22-29); Chloride 105 mmol/L (98-107); Estimated GFR-MDRD 75; Glucose 114 mg/dL (70-105); Potassium 4.5 mmol/L (3.5-5.1); Sodium 138 mmol/L (136-145)
[2017-09-02] MEDS: predniSONE 20 MG TAB PO SCH (09:29)
[2017-09-02] MEDS: Losartan 25 MG TAB PO SCH ×2 (09:30→21:10)
[2017-09-02] MEDS: levETIRAcetam 500 mg/5 ml Oral Solution PER TUBE SCH ×2 (09:30→21:10)
[2017-09-02] MEDS: Milk Of Magnesia 30 ML UDCUP PER TUBE PRN (09:30)
[2017-09-02] MEDS: Amlodipine 10 MG TAB PER TUBE SCH (09:30)
[2017-09-02] MEDS: Docusate Sodium 100 MG/10 ML UDCUP PER TUBE PRN (09:49)
--- NOTE | 2017-09-02 10:06 | CT ---
CT OF THE BRAIN WITHOUT CONTRAST: INDICATION: Status post craniotomy. COMPARISON: Prior exam dated 08/18/17. FINDINGS: There has been some decrease in prominence of the pneumocephalus involving the anterior cranial vault . A small focus of gas remains overlying the left frontal lobe. There are evolutionary changes of t he extraaxial hemorrhage overlying the left cerebral convexity. The largest collection measures 11.5 mm; however, hyperdense component appears less prominent than on the prior exam. Midline shift is s lightly more than seen on the comparison examination now measuring 7.9 cm. The extent of the hemorrh age seen in the suprasellar cistern has diminished. Some small residual subarachnoid hemorrhage neena ins in the anterior cranial fossa. There are stable changes of lacunar infarct involving the anterio r left thalamus. Evolutionary changes are seen involving the left inferior frontal lobe infarction. Postoperative changes of a craniotomy are similar appearing. IMPRESSION: 1. Evolutionary changes of the extraaxial hemorrhage overlying the left frontal convexity. Slight d ecrease in the subarachnoid hemorrhage seen within the suprasellar cistern. Decreased pneumocephalus. 2. Roughly stable left to right midline shift of 7 mm. 3. Evolutionary changes of the left inferior frontal lobe infarction and left thalamic lacunar infac tion from the comparison dated 07/21/17. POS: [facility]
[2017-09-02] MEDS ORDERED: Amlodipine 10 MG TAB PER TUBE SCH ×2 (12:46→13:00)
[2017-09-02] MEDS ORDERED: Losartan 25 MG TAB PO SCH ×2 (12:52→13:00)
[2017-09-02] MEDS ORDERED: Sodium Chloride 0.9% 500 ML IV SCH (13:15)
[2017-09-02] MEDS: Sodium Chloride 0.9% 1,000 ML IV SCH ×2 (13:17→23:54)
--- NOTE | 2017-09-02 14:55 | CON ---
DATE OF CONSULTATION: 09/02/2017 REASON FOR CONSULT: Hypotension. HISTORY OF PRESENT ILLNESS: Ms. Sherice Cervantes is a 57-year-old female who has a past medical history of hypertension, hypothyroidism, coronary artery disease, alcohol abuse, and chronic back pain. She was admitted to the hospital about 15 days ago due to a suprasellar mass. She is status post- transsphenoidal resection. She had a planum sphenoidale meningioma and in the course of her stay, she had a postop left thalamic infarct. She has been doing well postop and then yesterday, she was noted to be slightly tachycardic and today her blood pressure was low with last recorded blood pressure of 88/62. Of note, she has been on 10 mg of amlodipine and 50 mg of losartan twice a day. She received her medications this morning. Otherwise, there are no other complaints. She is unable to verbalize and communicate due to her recent thalamic stroke, so patient's sister is at the bedside to give history. PAST MEDICAL HISTORY: As stated above. PAST SURGICAL HISTORY: As stated above. OTHER SURGICAL HISTORY: Noncontributory. SOCIAL HISTORY: She does not smoke cigarettes, but drinks alcohol. Has had one episode of withdrawal in the hospital. ALLERGIES: SHELLFISH, ESOMEPRAZOLE. REVIEW OF SYSTEMS: Unable to conduct as the patient is unable to verbalize and unable to conduct a mental status examination. PHYSICAL EXAMINATION: VITAL SIGNS: Blood pressure 88/62, pulse rate 107, respiratory rate 18, oxygen saturation 94% on room air. GENERAL: She is lying in bed and looks comfortable. HEENT: Dressing present on the head postsurgical. She is not pale, anicteric. She has dry mucous membranes. NECK: Supple, no JVD. CARDIOVASCULAR: Tachycardic with regular rhythm. No murmurs, rubs or gallops. S1 and S2 only. RESPIRATORY: Vesicular breath sounds bilaterally. No wheezes or rales. ABDOMEN: Soft, nontender, nondistended. Bowel sounds normoactive. MUSCULOSKELETAL: No edema, has spontaneous movement of extremities, but seems to have limited movement of the right side. NEUROLOGIC: Unable to cooperate with exam. She is not opening her eyes. It is noted that she occasionally able to open her right eye spontaneously. SKIN: Warm, dry, well-perfused. No rashes or lesions. PSYCHIATRIC: Unable to assess. LABORATORY DATA: WBC 12.9 (steroid induced), hemoglobin 12.6, platelet count 327, serum CMP unremarkable. IMAGING: CT of the brain without contrast done today revealed evolutionary changes of the extraaxial hemorrhage overlying the left frontal convexity, slight decrease in subarachnoid hemorrhage seen within the suprasellar cistern. There is a roughly stable left to right midline shift of 7 mm and evolutionary changes of the left inferior frontal lobe infarction from the comparison dated 07/21/2017. PROBLEM LISTS: 1. Hypertension. 2. Tachycardia. 3. Leukocytosis. ASSESSMENT AND PLAN: The patient seems to be volume depleted accounting for the tachycardia and she is also hypertensive due to her antihypertensive that has been going through this admission. Therefore, we will hold antihypertensives for now, she will be given a bolus of 500 mL of normal saline and placed on maintenance fluids at 100 mL per hour. This should take care of the hypertension and tachycardia. We will also order a BNP to ensure the patient does not have any form of heart failure. Her leukocytosis is due to steroids. She is currently taking 10 mg of prednisone every morning. We will monitor her vital signs while she was in hospital. Other chronic medical conditions including hypothyroidism and coronary artery disease. Her other medications will be continued through the feeding tube apart from her antihypertensives. Thank you for the interesting consult. Do not hesitate to call us if you have any questions or concerns. LISA
--- NOTE | 2017-09-02 19:25 | PRG ---
DATE OF SERVICE: 09/02/2017 James Almanza PA-C, dictating for Dr. Anderson Torres. Ms. Browning is now postoperative day #15, having undergone a meningioma resection and subsequently had left thalamic infarct. The patient appears to be at neurologic baseline. She does not open her eyes, but does attempt to track to the examiner. She does have an open mouth breathing, but does not appear to be especially somnolent. She is able to follow commands in the left upper and left lower extremity and right lower extremity. She has difficulty with following commands in the right upper e xtremity. Her pupils are equal bilaterally. We did obtain a head CT to ensure that there was no ens uing hydrocephalus and this is stable compared to her most recent head CT. We have also obtained a orning cortisol level that is normal. Like her to remain on her prednisone. There were some issues with hypertension today as well and our hospitalist team has been consulted to help manage this. The patient has also been without a bowel movement and from a neurosurgical standpoint, we are fine with bowel regimen. The patient is stable for discharge from a neurosurgical standpoint and hopefully fr om a medical standpoint soon. Please call with any questions or changes.
[2017-09-02] MEDS: Pantoprazole 40 MG GRANULES PACKET PER TUBE SCH (21:10)
[2017-09-03] MEDS: Sodium Chloride 0.9% 1,000 ML IV SCH ×2 (00:12→20:35)
[2017-09-03] MEDS: Levothyroxine 150 MCG TAB PO SCH (05:08)
[2017-09-03] MEDS: Cipro 250 MG TAB PO SCH ×2 (05:08→20:36)
[2017-09-03 07:51] VITALS: TEMP 97.5
[2017-09-03] MEDS: predniSONE 20 MG TAB PO SCH (08:29)
[2017-09-03] MEDS: levETIRAcetam 500 mg/5 ml Oral Solution PER TUBE SCH ×2 (08:31→20:36)
[2017-09-03] MEDS: Losartan 25 MG TAB PO SCH ×2 (08:31→20:36)
[2017-09-03] MEDS ORDERED: Amlodipine 10 MG TAB PER TUBE SCH (09:00)
--- NOTE | 2017-09-03 11:36 | PDOC.PN ---
- Subjective Encounter Start Date: 09/03/17 Encounter Start Time: 09:00 Subjective: non verbal, seen moving left UE -: withdraws both LE to babinski's - Objective MAR Reviewed: Yes Vital Signs & Weight: Vital Signs (12 hours) Temp Pulse Resp BP BP Pulse Ox 09/03/17 08:30 100 148/92 H 09/03/17 08:00 97.5 F L 100 16 92 L 09/03/17 07:47 97.5 F L 100 16 148/92 H 92 L 09/03/17 06:58 100 09/03/17 06:55 79 18 100 09/03/17 03:42 97.4 F L 105 H 20 140/90 93 L 09/02/17 23:55 105 H 16 98 09/02/17 23:35 97.6 F 102 H 20 142/82 H 95 Weight Admit Weight 140 lb Weight 131 lb 6.328 oz Most Recent Monitor Data Heart Rate from ECG 107 NIBP 143/92 NIBP BP-Mean 118 Respiration from ECG 26 SpO2 98 I&O: 09/02/17 09/03/17 09/04/17 06:59 06:59 06:59 Intake Total 547 2754 267 Output Total 2050 1800 Balance -1503 954 267 Result Diagrams: 09/02/17 08:39 09/02/17 08:39 Additional Labs: Accuchecks 09/03/17 09/03/17 09/02/17 05:16 00:15 17:27 POC Glucose 121 H 103 134 H 09/02/17 11:08 POC Glucose 145 H Phys Exam - Physical Examination HEENT: moist MMs, sclera anicteric Neck: no JVD, supple Respiratory: no wheezing, no rales Cardiovascular: RRR, no significant murmur Gastrointestinal: soft, non-tender, positive bowel sounds peg+ Musculoskeletal: no edema, pulses present Dx/Plan (1) Acute CVA (cerebrovascular accident) Code(s): I63.9 - CEREBRAL INFARCTION, UNSPECIFIED Status: Acute Comment: left thalamic (2) S/P resection of meningioma Code(s): Z98.890 - OTHER SPECIFIED POSTPROCEDURAL STATES; Z86.018 - PERSONAL HISTORY OF OTHER BENIGN NEOPLASM Status: Acute Comment: s/p trans-spenoidal resection of meningioma 08/17/2017 (3) HTN (hypertension) Code(s): I10 - ESSENTIAL (PRIMARY) HYPERTENSION Status: Chronic Qualifiers: Hypertension type: essential hypertension Qualified Code(s): I10 - Essential (primary) hypertension (4) Hypothyroidism Code(s): E03.9 - HYPOTHYROIDISM, UNSPECIFIED Status: Chronic Qualifiers: Hypothyroidism type: unspecified Qualified Code(s): E03.9 - Hypothyroidism , unspecified (5) UTI (urinary tract infection) Status: Acute Qualifiers: Urinary tract infection type: acute cystitis Hematuria presence: without hematuria Qualified Code(s): N30.00 - Acute cystitis without hematuria - Plan hemostable -: htn is stable, on keppra 500mg bid, cipro 250 bid for uti x4 days -: suggest continue prednisone and taper over 1 week -: add lipitor 20mg HS via peg -: dc plan per nsx advice * . Review of Systems - Medications/Allergies Allergies/Adverse Reactions: Allergies Allergy/AdvReac Type Severity Reaction Status Date / Time shellfish derived Allergy Severe swelling Verified 08/16/17 13:07 of salivary glands esomeprazole [From Nexium] Allergy Intermediate Rash Verified 08/16/17 12:35 Medications: Current Medications Albuterol/Ipratropium (Duoneb) 3 ml NEB [id number] [facility] Last Admin: 09/03/17 06:55 Dose: 3 ml Amlodipine Besylate (Norvasc) 10 mg PER TUBE DAILY [facility] Last Admin: 09/03/17 08:30 Dose: 10 mg Ciprofloxacin (Cipro) 250 mg PO BID@0600,2000 [facility] Last Admin: 09/03/17 05:08 Dose: 250 mg Dextrose/Water (Dextrose 50%) 25 gm SLOW IVP PRN PRN PRN Reason: Hypoglycemia Diphenhydramine HCl (Benadryl) 50 mg IVP Q6H PRN PRN Reason: Itching & Insomnia Last Admin: 09/03/17 08:37 Dose: 50 mg Diphenhydramine HCl (Benadryl) 50 mg PO Q6H PRN PRN Reason: Itching & Insomnia Docusate Sodium (Colace Liquid) 100 mg PER TUBE BID PRN PRN Reason: CONSTIPATION Last Admin: 09/02/17 09:49 Dose: 100 mg Glucagon (Glucagon) 1 mg IM PRN PRN PRN Reason: Hypoglycemia Hydralazine HCl (Apresoline) 5 mg SLOW IVP Q15MIN PRN PRN Reason: SBP > 120 mmHg Last Admin: 08/29/17 20:24 Dose: 5 mg Dextrose/Water (D5w) 1,000 mls @ 0 mls/hr IV .Q0M PRN; As Directed PRN Reason: Hypoglycemia Sodium Chloride (Normal Saline 0.9%) 1,000 mls @ 100 mls/hr IV .Q10H [facility] Last Admin: 09/03/17 00:12 Dose: 1,000 mls Insulin Human Regular (Humulin R) 0 units SC .MODERATE SLIDING SC PRN PRN Reason: Moderate Correctional Scale Last Admin: 08/25/17 05:28 Dose: 6 unit Labetalol HCl (Normodyne) 10 mg SLOW IVP Q15MIN PRN PRN Reason: SBP > 120mmHg Last Admin: 08/24/17 15:15 Dose: 10 mg Levetiracetam (Keppra Oral Solution) 500 mg PER TUBE BID [facility] Last Admin: 09/03/17 08:31 Dose: 500 mg Levothyroxine Sodium (Synthroid) 150 mcg PO 0600 [facility] Last Admin: 09/03/17 05:08 Dose: 150 mcg Losartan Potassium (Cozaar) 50 mg PO BID [facility] Last Admin: 09/03/17 08:31 Dose: 50 mg Magnesium Hydroxide (Milk Of Magnesium) 30 ml PER TUBE DAILY PRN PRN Reason: Constipation Last Admin: 09/02/17 09:30 Dose: 30 ml Ccu Electrolyte (Replacement Protocol) 0 each FS PRN PRN PRN Reason: FOR ELECTROLYTE REPLACEMENT Pantoprazole Sodium (Protonix) 40 mg PER TUBE 2100 [facility] Last Admin: 09/02/17 21:10 Dose: 40 mg Prednisone (Prednisone) 10 mg PO QAM-WM [facility] Last Admin: 09/03/17 08:29 Dose: 10 mg Promethazine HCl (Phenergan) 12.5 mg PO Q4H PRN PRN Reason: Nausea/Vomiting Promethazine HCl (Phenergan) 12.5 mg IM Q4H PRN PRN Reason: Nausea/Vomiting Promethazine HCl (Phenergan Suppository) 12.5 mg VA Q4H PRN PRN Reason: Nausea/Vomiting Sodium Bicarbonate (Bicarbonate, Sodium) 650 mg PER TUBE .PER PROTOCOL PRN PRN Reason: ENTERAL TUBE OCCLUSION Last Admin: 08/24/17 22:23 Dose: 650 mg Sodium Chloride (Flush - Normal Saline) 10 ml IVF PRN PRN PRN Reason: Saline Flush Last Admin: 08/29/17 20:26 Dose: 10 ml
--- NOTE | 2017-09-03 13:42 | PRG ---
DATE OF SERVICE: 09/03/2017 Ms. Browning is now 17 days out from craniotomy for planum sphenoidale meningioma resection. Her ne urological exam has fluctuated. At times, she is more interactive and following commands other times she will briskly localize. She always prefers to keep her eyes closed as she does this morning, alt kilo she again briskly localizes and moves her left upper extremity spontaneously as well as her lef t leg with bit more of a delay in movement of her right upper extremity, but again she does move her legs spontaneously and I should note her wound is healing well. I did repeat a head CT which demonst rates postoperative changes. Subdural and epidural fluid collection with associated midline shift, a lthough this is no worse than it was in the postoperative MRI. There is no evidence of hydrocephalus . A.m. cortisol is in the normal range. She is on prednisone, but her cortisol is certainly in an a cceptable range. Her sodium is also stable. We will continue to work toward placement. She has bee n accepted at [facility]. I would be fine with her to be discharged today and have let her k now that as well, and he understands that it will simply take time to see persistent sustained improv ement.
[2017-09-03 20:17] VITALS: BP 159/108
[2017-09-03] MEDS: Pantoprazole 40 MG GRANULES PACKET PER TUBE SCH (20:36)
== END 2017-09-03 20:43 | DRG 25 ==
LOC: SURG A 05:41 → CCU 17:15 → 2SE 08-29 10:05
PROVIDERS: ADMIT Neurological Surgery; ATTEND Neurological Surgery
PROC: 00B10ZZ Excision of Cerebral Meninges, Open Approach (ICD-10-PCS; principal; 2017-08-17)
PROC: 00C40ZZ Extirpation of Matter from Intracranial Subdural Space, Open Approach (ICD-10-PCS; 2017-08-17)
PROC: 5A1955Z Respiratory Ventilation, Greater than 96 Consecutive Hours (ICD-10-PCS; 2017-08-17)
PROC: 0DH63UZ Insertion of Feeding Device into Stomach, Percutaneous Approach (ICD-10-PCS; 2017-08-26)
DX: D32.0 Benign neoplasm of cerebral meninges (principal); I63.39 Cerebral infarction due to thrombosis of other cerebral artery; J96.90 Respiratory failure, unspecified, unspecified whether with hypoxia or hypercapnia; G93.40 Encephalopathy, unspecified; G97.61 Postprocedural hematoma of a nervous system organ or structure following a nervous system procedure; G81.91 Hemiplegia, unspecified affecting right dominant side; E87.0 Hyperosmolality and hypernatremia; I97.821 Postprocedural cerebrovascular infarction following other surgery; N30.00 Acute cystitis without hematuria; H49.02 Third [oculomotor] nerve palsy, left eye; R13.12 Dysphagia, oropharyngeal phase; B96.20 Unspecified Escherichia coli [E. coli] as the cause of diseases classified elsewhere; I69.391 Dysphagia following cerebral infarction; I25.10 Atherosclerotic heart disease of native coronary artery without angina pectoris; I10 Essential (primary) hypertension; M54.9 Dorsalgia, unspecified; G89.29 Other chronic pain; E03.9 Hypothyroidism, unspecified; F17.210 Nicotine dependence, cigarettes, uncomplicated; Z79.899 Other long term (current) drug therapy; Y83.8 Other surgical procedures as the cause of abnormal reaction of the patient, or of later complication, without mention of misadventure at the time of the procedure
CPT/HCPCS: 36415; 36416; 70450; 70551; 71045; 74018; 80048; 81001; 81002; 82533; 82553; 82805; 83880; 84295; 84439; 84443; 84484; 85025; 85027; 85610; 85730; 87077; 87086; 87186; 88307; 93306; 93970; 94002; 94003; 94640; A4216; C1713; C1769; C9113; G8978-GP-CN; G8979-GP-CM; G8987-GO-CN; G8988-GO-CM; G8996-GN-CN; G8997-GN-CL; J0360; J0690; J1100; J1170; J1200; J1815; J1953; J2001; J2060; J2150; J2250; J2270; J2405; J2440; J2597; J2704; J3010; J3480; J3490; J7050; J7506; J7620

== ENCOUNTER 2017-12-16 11:46 | Day surgery (SDC) | payer OTHER ==
[2017-12-15 17:38] VITALS: BMI 20.3
[~2017-12-16 11:46] MED LIST: Gadobenate Dimeglumine 529 MG/1 ML (20ML VIAL) ONE
--- NOTE | 2017-12-16 14:14 | PRG ---
DATE OF SERVICE: 12/16/2017 HISTORY OF PRESENT ILLNESS: Ms. Browning's family asked if I would come and evaluate the patient's PEG tube, they thought it was not functioning right, it maybe have a problem. She was here for an MR I. The family states that it has been working fine, although sometimes does not drain if she is sitt ing up. There has been no fever or chills, but they feel like just moving her she complains of abdom inal pain. They states she is having good bowel movements. PHYSICAL EXAMINATION: VITAL SIGNS: She is afebrile. Vital signs were stable. LUNGS: Lungs are clear. ABDOMEN: Abdomen is soft and nontender. PEG tube site is clean and dry. Bumper was loosened and th e PEG in it moves in and out of the stomach fine, it is a 2-3 cm on the measurement at the bumper. T he PEG tube flushes with air well with good flow of air into the stomach auscultating and it flushes easily and water drips through the PEG into the stomach. ASSESSMENT: PEG tube shows no signs of malfunction. The abdomen is soft and nontender with no acute abnormalities. RECOMMENDATIONS: If the patient has ongoing abdominal pain they may consider getting plain films of the abdomen. Make sure she is not constipated. Recommend they keep her on a bowel regimen as she is not very active. At this point in time, I see no need for further intervention. She can follow up in my office p.r.n.
[2017-12-16] MEDS ORDERED: PROPOFOL 200 MG/20 ML VIAL ONE (15:08)
[2017-12-16] MEDS ORDERED: PHENYLEPHRINE-NS 100 MCG/ML 10 ML SYRINGE ONE (15:08)
[2017-12-16] MEDS ORDERED: Midazolam HCl 2 mg/2 ml Vial ONE (15:23)
[2017-12-16] MEDS ORDERED: Fentanyl 100 MCG/2 ML VIAL ONE (15:24)
--- NOTE | 2017-12-16 15:31 | EKG ---
Test Reason : PREOP Blood Pressure : / mmHG Vent. Rate : 089 BPM Atrial Rate : 089 BPM P-R Int : 168 ms QRS Dur : 078 ms QT Int : 354 ms P-R-T Axes : 038 008 063 degrees QTc Int : 430 ms Normal sinus rhythm Normal ECG No previous ECGs available Confirmed by BROOKLYN GUZMAN, DR. Moseley ([id number]) on 12/16/2017 3:30:48 PM Referred By: LOLA Confirmed By:DR. Lorelei BARAHONA MD
[2017-12-16 16:07] LABS: Calc. Creatinine Clearance 86 mL/min (70-130); Estimated GFR-MDRD Greater than 90
[2017-12-16] MEDS ORDERED: diphenhydrAMINE 50 MG/ML VIAL ONE (17:10)
--- NOTE | 2017-12-16 19:34 | MRI ---
MRI BRAIN WITH AND WITHOUT CONTRAST: DATE: 12/16/17 HISTORY: 57-year-old female. 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 COMPARISON: MRI of 08/18/17. FINDINGS: There is a new finding of moderate dilation of the bilateral lateral and third ventricles. The fourth ventricle is unchanged in size, within normal limits. There is another new finding of moderate-severe confluent T2 hyperintense signal symmetrically throug hout much of the bilateral periventricular white matter, especially around the bilateral frontal horn s, occipital horns, and to a lesser degree trigones. Although a small part of this represents chroni c ischemic white matter changes, it is significantly greater than it was on prior study, and is suspi cious for transependymal migration of CSF. Again noted is the approximately 1.5 x 1 cm old lacunar infarction in the left thalamus. Currently, t here is no restricted diffusion. Again noted are the prior left frontotemporal craniotomy changes. Ag ain demonstrated is severe partial opacification of the sphenoid sinus. There is no abnormal intra-ax ial enhancement or mass. There is no acute intra-axial or extra-axial hemorrhage. No mass effect or m idline shift. There is slight enlargement of extra-axial space at the anterior aspect of the left mi ddle cranial fossa. The aqueduct of Sylvius is slightly dilated (sagittal image 81 of 160, series 100 ). IMPRESSION: 1. Interval development of ventriculomegaly and transependymal migration of cerebrospinal fluid are evidence for a communicating obstructive hydrocephalus. 2. Prominent old left thalamic lacunar infarction. 3. Prior left pterional craniotomy changes. 4. No evidence of recurrent or residual neoplasm. RADHA Brown POS: [place]
== END 2017-12-16 18:18 | disposition home or self-care (01) ==
LOC: SDC/OP 11:46 → EDSTATUS 14:00 → SDC/OP 18:18
PROVIDERS: ATTEND Neurological Surgery
DX: D32.0 Benign neoplasm of cerebral meninges (principal); G93.89 Other specified disorders of brain; E23.7 Disorder of pituitary gland, unspecified; I25.10 Atherosclerotic heart disease of native coronary artery without angina pectoris; I10 Essential (primary) hypertension; E07.9 Disorder of thyroid, unspecified; G89.29 Other chronic pain; M54.9 Dorsalgia, unspecified; F17.210 Nicotine dependence, cigarettes, uncomplicated; I69.393 Ataxia following cerebral infarction; Z79.899 Other long term (current) drug therapy; Z88.8 Allergy status to other drugs, medicaments and biological substances; Z91.013 Allergy to seafood; Z93.1 Gastrostomy status; Z98.890 Other specified postprocedural states
CPT/HCPCS: 36415; 70553; 82565; 93005; 93010; A9579; J1200; J2250; J2704; J3010